=== PATIENT | male | born 1955 | race Caucasian/White ===

== ENCOUNTER 2017-09-11 17:47 | Inpatient (IN) | payer OTHER ==
[2017-09-11] MEDS ORDERED: ACETAMINOPHEN 325 MG TAB PO ×2 (19:30→20:00)
[2017-09-11] MEDS: SOD CHLORIDE 0.9% 1,000 ML IV (20:49)
[2017-09-11] MEDS: morphine 2 MG INJ IV (20:50)
[2017-09-11 20:52] LABS: ADD MAN DIFF? NO
[2017-09-11 20:53] LABS: WHITE BLOOD COUNT 6.2 10^3/ul (4.8-10.8)
[2017-09-11 20:53] LABS: ABNORMAL IP MESSAGE 1; BASOPHILS % 0.6 % (0.0-2.0); EOSINOPHILS % 0.6 % (0.0-7.0); HEMATOCRIT 33.1 % (42.0-52.0); HEMOGLOBIN 10.3 g/dl (14.0-18.0); LYMPHOCYTES # 0.6 10^3/ul (0.8-2.9); LYMPHOCYTES % 9.4 % (15.0-51.0); MEAN CORPUSCULAR HEMOGLOBIN 24.5 pg (29.0-33.0); MEAN CORPUSCULAR HGB CONC 31.1 g/dl (32.0-37.0); MEAN CORPUSCULAR VOLUME 78.8 fl (82.0-101.0); MONOCYTE # 0.4 10^3/ul (0.3-0.9); MONOCYTES % 6.8 % (0.0-11.0); NEUTROPHIL # 5.1 10^3/ul (1.6-7.5); NEUTROPHILS % 82.3 % (39.0-77.0); PLATELET COUNT 220 10^3/UL (140-415); POSITIVE DIFF @See below; RED CELL DISTRIBUTION WIDTH 15.1 % (11.5-14.5)
[2017-09-11 21:12] LABS: ALANINE AMINOTRANSFERASE 416 IU/L (13-69); ALBUMIN 3.6 g/dl (3.3-4.9); ALBUMIN/GLOBULIN RATIO 1.05; ALKALINE PHOSPHATASE 1191 IU/L (42-121); ANION GAP 13 (8-16); ASPARTATE AMINO TRANSFERASE 304 IU/L (15-46); BILIRUBIN,INDIRECT 0.7 mg/dl (0-1.1); BLOOD UREA NITROGEN 8 mg/dl (7-20); CALCIUM 9.6 mg/dl (8.4-10.2); CARBON DIOXIDE 27 mmol/L (21-31); CHLORIDE 100 mmol/L (97-110); CREATININE 0.71 mg/dl (0.61-1.24); GLUCOSE 133 mg/dl (70-220); POTASSIUM 3.5 mmol/L (3.5-5.1); SODIUM 136 mmol/L (135-144)
[2017-09-11] MEDS: HYDROmorphONE 0.5 MG/0.5 ML SYG IV (22:52)
[2017-09-12] MEDS: HYDROmorphONE 0.5 MG/0.5 ML SYG IV ×2 (03:18→16:16)
[2017-09-12] MEDS: SOD CHLORIDE 0.9% 1,000 ML IV ×3 (04:47→19:20)
[2017-09-12] MEDS: PANTOPRAZOLE 40 MG INJ IV (05:07)
[2017-09-12 05:13] LABS: ADD MAN DIFF? NO; HAAIG REFLEX REFLEX FILED
[2017-09-12 05:21] LABS: EOSINOPHILS # 0.1 10^3/ul (0.0-0.5); EOSINOPHILS % 2.8 % (0.0-7.0); HEMATOCRIT 27.9 % (42.0-52.0); HEMOGLOBIN 8.9 g/dl (14.0-18.0); LYMPHOCYTES % 25.9 % (15.0-51.0); MEAN CORPUSCULAR HEMOGLOBIN 24.9 pg (29.0-33.0); MEAN CORPUSCULAR HGB CONC 31.9 g/dl (32.0-37.0); MEAN CORPUSCULAR VOLUME 77.9 fl (82.0-101.0); MONOCYTE # 0.5 10^3/ul (0.3-0.9); MONOCYTES % 13.4 % (0.0-11.0); NEUTROPHIL # 2.3 10^3/ul (1.6-7.5); NEUTROPHILS % 56.6 % (39.0-77.0); PLATELET COUNT 204 10^3/UL (140-415); RED BLOOD COUNT 3.58 10^6/ul (4.70-6.10); RED CELL DISTRIBUTION WIDTH 15.3 % (11.5-14.5)
[2017-09-12 06:00] LABS: LIPASE 864 U/L (23-300)
[2017-09-12 06:10] LABS: MAGNESIUM 1.8 mg/dl (1.7-2.5)
[2017-09-12 06:10] LABS: PHOSPHORUS 3.5 mg/dl (2.5-4.9)
[2017-09-12 06:11] LABS: CHOLESTEROL 187 mg/dl (100-200)
[2017-09-12 06:11] LABS: CHOL/HDL RATIO 3.1 RATIO; HDL CHOLESTEROL 60 mg/dl (30-78); LDL CHOLESTEROL,CALCULATED 117 mg/dl; TRIGLYCERIDES 49 mg/dl (0-149)
[2017-09-12 06:14] LABS: ALANINE AMINOTRANSFERASE 350 IU/L (13-69); ALBUMIN 3.1 g/dl (3.3-4.9); ALBUMIN/GLOBULIN RATIO 1.14; ALKALINE PHOSPHATASE 1014 IU/L (42-121); ANION GAP 12 (8-16); ASPARTATE AMINO TRANSFERASE 263 IU/L (15-46); BILIRUBIN,INDIRECT 0.6 mg/dl (0-1.1); BILIRUBIN,TOTAL 2.1 mg/dl (0.2-1.3); BLOOD UREA NITROGEN 7 mg/dl (7-20); C-REACTIVE PROTEIN 0.6 mg/dl (0.0-0.9); CALCIUM 8.5 mg/dl (8.4-10.2); CARBON DIOXIDE 24 mmol/L (21-31); CHLORIDE 105 mmol/L (97-110); CREATININE 0.64 mg/dl (0.61-1.24); GLUCOSE 75 mg/dl (70-220); POTASSIUM 3.8 mmol/L (3.5-5.1); SODIUM 137 mmol/L (135-144); TOTAL PROTEIN 5.8 g/dl (6.1-8.1)
[2017-09-12 06:18] LABS: TOTAL IRON BINDING CAPACITY 387 ug/dl (241-421)
[2017-09-12 06:24] LABS: IRON < 10 ug/dl (35-150)
[2017-09-12 06:45] LABS: FERRITIN 10.2 ng/ml (11.1-264.0)
[2017-09-12 06:51] LABS: HEPATITIS B SURFACE ANTIGEN NEGATIVE (NEGATIVE)
[2017-09-12 06:53] LABS: HIV 1&2 ANTIBODY NEGATIVE (NEGATIVE)
[2017-09-12 06:59] LABS: HEPATITIS B SURFACE ANTIBODY NEGATIVE (NEGATIVE)
[2017-09-12 07:11] LABS: HEPATITIS B CORE ANTIBODY NEGATIVE (NEGATIVE); HEPATITIS C VIRAL ANTIBODY NEGATIVE (NEGATIVE)
[2017-09-12 08:10] LABS: CANCER ANTIGEN 125 31.4 U/ml (0.0-35.0); CARCINOEMBRYONIC ANTIGEN 1.9 ng/ml (0.0-5.0)
[2017-09-12 09:15] LABS: ADD UMIC NO; UR ASCORBIC ACID NEGATIVE (NEGATIVE); UR BILIRUBIN (Dip) 1+ mg/dL (NEGATIVE); UR BLOOD (Dip) NEGATIVE (NEGATIVE); UR CLARITY CLEAR (CLEAR); UR COLOR AMBER (YELLOW); UR GLUCOSE (Dip) NEGATIVE (NEGATIVE); UR KETONES (Dip) 1+ mg/dL (NEGATIVE); UR LEUKOCYTE ESTERASE (Dip) NEGATIVE Leu/ul (NEGATIVE); UR NITRITE (Dip) NEGATIVE (NEGATIVE); UR SPECIFIC GRAVITY (Dip) 1.015 (1.003-1.030); UR TOTAL PROTEIN (Dip) NEGATIVE (NEGATIVE); UR UROBILINOGEN (Dip) 1+ mg/dL (NEGATIVE)
[2017-09-12 12:15] LABS: INR 0.83; PROTIME 11.5 Sec (11.9-14.9); PT RATIO 0.9
[2017-09-12] MEDS: PEG/ELECTROLYTES 4L BTL PO (18:30)
[2017-09-12] MEDS ORDERED: HYDROmorphONE 2 MG/ML SYG IV (19:00)
[2017-09-12 19:43] LABS: INR 0.87; PARTIAL THROMBOPLASTIN TIME 28.6 Sec (25.0-35.0); PROTIME 11.9 Sec (11.9-14.9); PT RATIO 0.9
[2017-09-12] MEDS: HYDROmorphONE 2 MG/ML SYG IV (21:17)
[2017-09-12] MEDS: SOD FERRIC GLUC COMPLX 125 MG in SOD CHLORIDE 0.9% 100 ML IVPB (21:21)
[2017-09-12] MEDS: ONDANSETRON 4 MG INJ IV (21:26)
[2017-09-13] MEDS: SOD CHLORIDE 0.9% 1,000 ML IV ×3 (04:47→20:47)
[2017-09-13 05:12] LABS: ADD MAN DIFF? NO
[2017-09-13 05:18] LABS: WHITE BLOOD COUNT 4.6 10^3/ul (4.8-10.8)
[2017-09-13 05:18] LABS: BASOPHILS % 0.9 % (0.0-2.0); EOSINOPHILS # 0.1 10^3/ul (0.0-0.5); EOSINOPHILS % 1.7 % (0.0-7.0); HEMATOCRIT 30.7 % (42.0-52.0); HEMOGLOBIN 9.7 g/dl (14.0-18.0); LYMPHOCYTES # 0.8 10^3/ul (0.8-2.9); LYMPHOCYTES % 16.9 % (15.0-51.0); MEAN CORPUSCULAR HEMOGLOBIN 24.9 pg (29.0-33.0); MEAN CORPUSCULAR HGB CONC 31.6 g/dl (32.0-37.0); MEAN CORPUSCULAR VOLUME 78.7 fl (82.0-101.0); MEAN PLATELET VOLUME 8.7 fl (7.4-10.4); MONOCYTE # 0.3 10^3/ul (0.3-0.9); MONOCYTES % 6.1 % (0.0-11.0); NEUTROPHIL # 3.4 10^3/ul (1.6-7.5); NEUTROPHILS % 74.2 % (39.0-77.0); PLATELET COUNT 211 10^3/UL (140-415); RED CELL DISTRIBUTION WIDTH 15.6 % (11.5-14.5)
[2017-09-13 05:35] LABS: LIPASE 1080 U/L (23-300)
[2017-09-13 05:48] LABS: ALANINE AMINOTRANSFERASE 390 IU/L (13-69); ALBUMIN 3.5 g/dl (3.3-4.9); ALBUMIN/GLOBULIN RATIO 1.09; ALKALINE PHOSPHATASE 1238 IU/L (42-121); ANION GAP 14 (8-16); ASPARTATE AMINO TRANSFERASE 306 IU/L (15-46); BILIRUBIN,INDIRECT 0.8 mg/dl (0-1.1); BILIRUBIN,TOTAL 3.6 mg/dl (0.2-1.3); BLOOD UREA NITROGEN 6 mg/dl (7-20); CALCIUM 9.3 mg/dl (8.4-10.2); CARBON DIOXIDE 26 mmol/L (21-31); CHLORIDE 103 mmol/L (97-110); CREATININE 0.65 mg/dl (0.61-1.24); GLUCOSE 66 mg/dl (70-220); POTASSIUM 4.2 mmol/L (3.5-5.1); SODIUM 139 mmol/L (135-144); TOTAL PROTEIN 6.7 g/dl (6.1-8.1)
[2017-09-13 05:52] LABS: MAGNESIUM 1.7 mg/dl (1.7-2.5)
[2017-09-13 05:52] LABS: PHOSPHORUS 3.1 mg/dl (2.5-4.9)
[2017-09-13] MEDS: PANTOPRAZOLE (EC) 40 MG TAB PO (06:00)
[2017-09-13] MEDS: ONDANSETRON 4 MG INJ IV ×3 (06:13→23:05)
[2017-09-13] MEDS: HYDROmorphONE 1 MG/ML SYG IV ×3 (06:13→20:55)
[2017-09-13] MEDS ORDERED: ROCURONIUM 50 MG INJ ×2 (07:00→16:56)
[2017-09-13] MEDS ORDERED: GLUCOSE GEL 15 GRAM TUBE BUCCAL (10:00)
[2017-09-13] MEDS ORDERED: GLUCAGON 1 MG INJ IM (10:00)
[2017-09-13] MEDS ORDERED: DEXTROSE 50% 50 ML SYRINGE IV (10:00)
[2017-09-13] MEDS ORDERED: GLUCOSE GEL 15 GRAM TUBE PO ×2 (10:00)
[2017-09-13] MEDS: DEXTROSE 50% 50 ML SYRINGE IV (10:01)
[2017-09-13] MEDS: MULTIVITAMINS 10 ML, THIAMINE 100 MG, FOLIC ACID 1 MG in SOD CHLORIDE 0.9% 1,000 ML IVPB (11:56)
[2017-09-13] MEDS: DEXTROSE 5%-0.45% NACL 1,000 ML IV ×2 (13:45→20:58)
[2017-09-13] MEDS ORDERED: IOHEXOL 300MG/ML 30 ML BTL (16:21)
[2017-09-13] MEDS ORDERED: PROPOFOL 20 ML (16:56)
[2017-09-13] MEDS ORDERED: MIDAZOLAM 1 MG/ML 2 ML INJ (16:56)
[2017-09-13] MEDS ORDERED: FENTAnyl 50 MCG/ML VIAL (16:56)
[2017-09-13] MEDS ORDERED: CEFAZOLIN 1 GM INJ (16:56)
[2017-09-13] MEDS ORDERED: ONDANSETRON 4 MG INJ (16:58)
[2017-09-13] MEDS ORDERED: DEXAMETHASONE 4 MG/ML 1 ML INJ (16:58)
[2017-09-13] MEDS ORDERED: METOCLOPRAMIDE 10 MG INJ (16:58)
[2017-09-13] MEDS ORDERED: LABETALOL HCL 20MG INJ IV (17:30)
[2017-09-13] MEDS ORDERED: MEPERIDINE 25 MG INJ IV (17:30)
[2017-09-13] MEDS ORDERED: EPHEDrine SULFATE 50 MG/5 ML SYG IV (17:30)
[2017-09-13] MEDS ORDERED: DIPHENHYDRAMINE 50 MG INJ IV (17:30)
[2017-09-13] MEDS ORDERED: METOCLOPRAMIDE 10 MG INJ IV (17:30)
[2017-09-13] MEDS ORDERED: HYDROmorphONE (0.2 MG/ML) 10ML SYG IV ×3 (17:30)
[2017-09-13] MEDS ORDERED: ONDANSETRON 4 MG INJ IV (17:30)
[2017-09-13] MEDS ORDERED: FENTAnyl 50 MCG/ML VIAL IV ×3 (17:30)
[2017-09-13] MEDS ORDERED: PHENYLephrine (100 MCG/ML) 5ML SYG (18:18)
[2017-09-13] MEDS ORDERED: SUGAMMADEX SODIUM 200 MG/2 ML VIAL IV (18:39)
[2017-09-13] MEDS: SOD FERRIC GLUC COMPLX 125 MG in SOD CHLORIDE 0.9% 100 ML IVPB (20:55)
[2017-09-13 21:25] LABS: TROPONIN-I < 0.012 ng/ml (0.00-0.12)
[2017-09-14 01:54] LABS: TROPONIN-I < 0.012 ng/ml (0.00-0.12)
[2017-09-14] MEDS: ACCU-CHEK XX (02:00)
[2017-09-14] MEDS: ONDANSETRON 4 MG INJ IV (04:36)
[2017-09-14] MEDS: HYDROmorphONE 2 MG/ML SYG IV ×3 (04:36→21:04)
[2017-09-14] MEDS: SOD CHLORIDE 0.9% 1,000 ML IV ×2 (04:47→12:47)
[2017-09-14 05:27] LABS: ADD MAN DIFF? NO
[2017-09-14 05:35] LABS: ABNORMAL IP MESSAGE 1; BASOPHILS % 0.2 % (0.0-2.0); HEMATOCRIT 28.5 % (42.0-52.0); HEMOGLOBIN 9.1 g/dl (14.0-18.0); LYMPHOCYTES # 0.5 10^3/ul (0.8-2.9); LYMPHOCYTES % 7.9 % (15.0-51.0); MEAN CORPUSCULAR HEMOGLOBIN 24.4 pg (29.0-33.0); MEAN CORPUSCULAR HGB CONC 31.9 g/dl (32.0-37.0); MEAN CORPUSCULAR VOLUME 76.4 fl (82.0-101.0); MONOCYTE # 0.5 10^3/ul (0.3-0.9); MONOCYTES % 7.8 % (0.0-11.0); NEUTROPHIL # 4.9 10^3/ul (1.6-7.5); NEUTROPHILS % 83.8 % (39.0-77.0); PLATELET COUNT 213 10^3/UL (140-415); POSITIVE DIFF @See below; RED BLOOD COUNT 3.73 10^6/ul (4.70-6.10)
[2017-09-14 05:35] LABS: WHITE BLOOD COUNT 5.8 10^3/ul (4.8-10.8)
[2017-09-14] MEDS: DEXTROSE 5%-0.45% NACL 1,000 ML IV (05:40)
[2017-09-14] MEDS: PANTOPRAZOLE (EC) 40 MG TAB PO (05:40)
[2017-09-14 05:52] LABS: CHOLESTEROL 198 mg/dl (100-200)
[2017-09-14 05:52] LABS: CHOL/HDL RATIO 3.1 RATIO; HDL CHOLESTEROL 63 mg/dl (30-78); LDL CHOLESTEROL,CALCULATED 128 mg/dl; TRIGLYCERIDES 33 mg/dl (0-149)
[2017-09-14 05:58] LABS: ALANINE AMINOTRANSFERASE 353 IU/L (13-69); ALKALINE PHOSPHATASE 1021 IU/L (42-121); ANION GAP 11 (8-16); ASPARTATE AMINO TRANSFERASE 267 IU/L (15-46); BILIRUBIN,INDIRECT 0.7 mg/dl (0-1.1); BILIRUBIN,TOTAL 2.7 mg/dl (0.2-1.3); BLOOD UREA NITROGEN 4 mg/dl (7-20); CALCIUM 8.7 mg/dl (8.4-10.2); CARBON DIOXIDE 27 mmol/L (21-31); CHLORIDE 100 mmol/L (97-110); CREATININE 0.63 mg/dl (0.61-1.24); GLUCOSE 188 mg/dl (70-220); POTASSIUM 3.7 mmol/L (3.5-5.1); SODIUM 134 mmol/L (135-144)
[2017-09-14 06:06] LABS: TROPONIN-I < 0.012 ng/ml (0.00-0.12)
[2017-09-14 06:26] LABS: LIPASE 641 U/L (23-300)
[2017-09-14 06:28] LABS: MAGNESIUM 1.5 mg/dl (1.7-2.5)
[2017-09-14 06:28] LABS: PHOSPHORUS 3.4 mg/dl (2.5-4.9)
[2017-09-14] MEDS: CHLORPROMAZINE 25 MG INJ IM ×2 (10:26→14:09)
[2017-09-14] MEDS ORDERED: CHLORPROMAZINE 25 MG INJ IV (13:30)
[2017-09-14] MEDS: DEXTROSE 5%-0.9% NACL 1,000 ML IV (14:03)
[2017-09-14] MEDS: MAGNESIUM SULFATE 2 GM/50 ML 50 ML IVPB (16:37)
[2017-09-14] MEDS: BACLOFEN 10 MG TAB PO (19:02)
[2017-09-14] MEDS: SOD FERRIC GLUC COMPLX 125 MG in SOD CHLORIDE 0.9% 100 ML IVPB (20:59)
[2017-09-15] MEDS: ACCU-CHEK XX (02:00)
[2017-09-15] MEDS: DEXTROSE 5%-0.9% NACL 1,000 ML IV ×3 (02:31→13:54)
[2017-09-15] MEDS: PANTOPRAZOLE (EC) 40 MG TAB PO (05:18)
[2017-09-15 05:55] LABS: WHITE BLOOD COUNT 4.4 10^3/ul (4.8-10.8)
[2017-09-15 05:55] LABS: ADD MAN DIFF? NO; BASOPHILS % 0.9 % (0.0-2.0); EOSINOPHILS # 0.1 10^3/ul (0.0-0.5); EOSINOPHILS % 2.5 % (0.0-7.0); HEMOGLOBIN 8.8 g/dl (14.0-18.0); LYMPHOCYTES % 23.9 % (15.0-51.0); MEAN CORPUSCULAR HEMOGLOBIN 24.5 pg (29.0-33.0); MEAN CORPUSCULAR HGB CONC 31.4 g/dl (32.0-37.0); MONOCYTE # 0.4 10^3/ul (0.3-0.9); MONOCYTES % 8.9 % (0.0-11.0); NEUTROPHIL # 2.8 10^3/ul (1.6-7.5); NEUTROPHILS % 63.6 % (39.0-77.0); PLATELET COUNT 208 10^3/UL (140-415); RED BLOOD COUNT 3.59 10^6/ul (4.70-6.10); RED CELL DISTRIBUTION WIDTH 15.8 % (11.5-14.5)
[2017-09-15 06:29] LABS: PHOSPHORUS 2.5 mg/dl (2.5-4.9)
[2017-09-15 07:19] LABS: ALANINE AMINOTRANSFERASE 379 IU/L (13-69); ALBUMIN 2.9 g/dl (3.3-4.9); ALBUMIN/GLOBULIN RATIO 0.96; ALKALINE PHOSPHATASE 989 IU/L (42-121); ANION GAP 10 (8-16); ASPARTATE AMINO TRANSFERASE 350 IU/L (15-46); BILIRUBIN,INDIRECT 0.7 mg/dl (0-1.1); BILIRUBIN,TOTAL 2.2 mg/dl (0.2-1.3); BLOOD UREA NITROGEN 2 mg/dl (7-20); CALCIUM 8.5 mg/dl (8.4-10.2); CARBON DIOXIDE 29 mmol/L (21-31); CHLORIDE 107 mmol/L (97-110); CREATININE 0.69 mg/dl (0.61-1.24); GLUCOSE 111 mg/dl (70-220); POTASSIUM 3.4 mmol/L (3.5-5.1); SODIUM 143 mmol/L (135-144); TOTAL PROTEIN 5.9 g/dl (6.1-8.1)
[2017-09-15] MEDS ORDERED: MULTIVITAMINS 10 ML, THIAMINE 100 MG, FOLIC ACID 1 MG in SOD CHLORIDE 0.9% 1,000 ML IVPB (09:00)
[2017-09-15] MEDS: BACLOFEN 10 MG TAB PO ×2 (09:00→21:35)
[2017-09-15] MEDS: MULTIVITAMINS THERAPEUTIC TAB PO (09:00)
[2017-09-15] MEDS: FENTAnyl 50 MCG/ML VIAL ×3 (15:28→16:48)
[2017-09-15] MEDS ORDERED: MIDAZOLAM 1 MG/ML 2 ML INJ (15:29)
[2017-09-15] MEDS ORDERED: PROPOFOL 0 ML (15:29)
[2017-09-15] MEDS ORDERED: LIDOCAINE 1% (MDV) 20 ML INJ (15:32)
[2017-09-15] MEDS ORDERED: CEFAZOLIN 1 GM/50 ML (PMX) 100 ML IVPB (16:13)
[2017-09-15] MEDS ORDERED: FENTAnyl 50 MCG/ML VIAL ×3 (16:26→17:36)
[2017-09-15] MEDS ORDERED: NALOXONE (0.4 MG/ML) INJ (16:34)
[2017-09-15] MEDS ORDERED: FLUMAZENIL 0.5 MG INJ (16:34)
[2017-09-15] MEDS ORDERED: KETOROLAC 30 MG INJ IV (18:30)
[2017-09-15] MEDS ORDERED: ACETAMINOPHEN 1000MG/100ML IV 100 ML IVPB (18:30)
[2017-09-15] MEDS ORDERED: ONDANSETRON 4 MG INJ IV (18:30)
[2017-09-15] MEDS: POTASSIUM CHLORIDE 50 ML IVPB ×4 (19:35→22:44)
[2017-09-15] MEDS: ONDANSETRON 4 MG INJ IV (19:35)
[2017-09-15] MEDS: HYDROmorphONE 2 MG/ML SYG IV (19:36)
[2017-09-15] MEDS: SOD FERRIC GLUC COMPLX 125 MG in SOD CHLORIDE 0.9% 100 ML IVPB (23:51)
[2017-09-16] MEDS: ACCU-CHEK XX (02:54)
[2017-09-16 05:03] LABS: ADD MAN DIFF? NO
[2017-09-16] MEDS: DEXTROSE 5%-0.9% NACL 1,000 ML IV ×4 (05:04→23:58)
[2017-09-16] MEDS: PANTOPRAZOLE (EC) 40 MG TAB PO (05:07)
[2017-09-16 05:09] LABS: BASOPHILS % 0.8 % (0.0-2.0); EOSINOPHILS # 0.1 10^3/ul (0.0-0.5); EOSINOPHILS % 2.3 % (0.0-7.0); HEMATOCRIT 27.1 % (42.0-52.0); HEMOGLOBIN 8.5 g/dl (14.0-18.0); LYMPHOCYTES % 19.3 % (15.0-51.0); MEAN CORPUSCULAR HEMOGLOBIN 24.6 pg (29.0-33.0); MEAN CORPUSCULAR HGB CONC 31.4 g/dl (32.0-37.0); MEAN CORPUSCULAR VOLUME 78.6 fl (82.0-101.0); MEAN PLATELET VOLUME 8.8 fl (7.4-10.4); MONOCYTE # 0.6 10^3/ul (0.3-0.9); MONOCYTES % 10.7 % (0.0-11.0); NEUTROPHIL # 3.4 10^3/ul (1.6-7.5); NEUTROPHILS % 66.7 % (39.0-77.0); PLATELET COUNT 179 10^3/UL (140-415); RED BLOOD COUNT 3.45 10^6/ul (4.70-6.10); RED CELL DISTRIBUTION WIDTH 16.2 % (11.5-14.5)
[2017-09-16 05:09] LABS: WHITE BLOOD COUNT 5.1 10^3/ul (4.8-10.8)
[2017-09-16 05:40] LABS: ALANINE AMINOTRANSFERASE 355 IU/L (13-69); ALBUMIN 2.6 g/dl (3.3-4.9); ALBUMIN/GLOBULIN RATIO 1.08; ALKALINE PHOSPHATASE 879 IU/L (42-121); ANION GAP 10 (8-16); ASPARTATE AMINO TRANSFERASE 301 IU/L (15-46); BILIRUBIN,INDIRECT 0.8 mg/dl (0-1.1); BILIRUBIN,TOTAL 0.8 mg/dl (0.2-1.3); CALCIUM 8.6 mg/dl (8.4-10.2); CARBON DIOXIDE 27 mmol/L (21-31); CHLORIDE 102 mmol/L (97-110); CREATININE 0.58 mg/dl (0.61-1.24); GLUCOSE 93 mg/dl (70-220); POTASSIUM 3.5 mmol/L (3.5-5.1); SODIUM 135 mmol/L (135-144)
[2017-09-16 05:41] LABS: BLOOD UREA NITROGEN < 2 mg/dl (7-20)
[2017-09-16 05:44] LABS: PHOSPHORUS 2.7 mg/dl (2.5-4.9)
[2017-09-16 05:44] LABS: MAGNESIUM 1.6 mg/dl (1.7-2.5)
[2017-09-16] MEDS: MULTIVITAMINS THERAPEUTIC TAB PO (08:35)
[2017-09-16] MEDS: BACLOFEN 10 MG TAB PO ×2 (08:35→20:06)
[2017-09-16] MEDS: HYDROmorphONE 2 MG/ML SYG IV ×3 (09:36→20:08)
[2017-09-16] MEDS: SOD FERRIC GLUC COMPLX 125 MG in SOD CHLORIDE 0.9% 100 ML IVPB (20:06)
[2017-09-17] MEDS: ACCU-CHEK XX (01:24)
[2017-09-17] MEDS: HYDROmorphONE 2 MG/ML SYG IV ×5 (04:37→21:01)
[2017-09-17] MEDS: PANTOPRAZOLE (EC) 40 MG TAB PO (04:39)
[2017-09-17] MEDS: ONDANSETRON 4 MG INJ IV ×3 (04:39→21:00)
[2017-09-17] MEDS: DEXTROSE 5%-0.9% NACL 1,000 ML IV ×3 (06:42→21:54)
[2017-09-17] MEDS: BACLOFEN 10 MG TAB PO ×2 (09:03→21:00)
[2017-09-17] MEDS: MULTIVITAMINS THERAPEUTIC TAB PO (09:03)
[2017-09-17] MEDS: BARIUM SULFATE 135 ML (E-Z HD) PO (13:34)
[2017-09-18] MEDS: DEXTROSE 5%-0.9% NACL 1,000 ML IV ×3 (01:48→20:02)
[2017-09-18] MEDS: ACCU-CHEK XX (02:00)
[2017-09-18] MEDS: HYDROmorphONE 2 MG/ML SYG IV ×5 (03:03→23:49)
[2017-09-18] MEDS: ONDANSETRON 4 MG INJ IV ×5 (03:03→23:48)
[2017-09-18] MEDS: PANTOPRAZOLE (EC) 40 MG TAB PO (05:05)
[2017-09-18 05:09] LABS: ADD MAN DIFF? NO
[2017-09-18 05:22] LABS: BASOPHILS % 0.9 % (0.0-2.0); EOSINOPHILS # 0.2 10^3/ul (0.0-0.5); EOSINOPHILS % 3.4 % (0.0-7.0); HEMATOCRIT 26.2 % (42.0-52.0); HEMOGLOBIN 8.2 g/dl (14.0-18.0); LYMPHOCYTES # 0.6 10^3/ul (0.8-2.9); LYMPHOCYTES % 13.8 % (15.0-51.0); MEAN CORPUSCULAR HEMOGLOBIN 24.7 pg (29.0-33.0); MEAN CORPUSCULAR HGB CONC 31.3 g/dl (32.0-37.0); MEAN CORPUSCULAR VOLUME 78.9 fl (82.0-101.0); MEAN PLATELET VOLUME 9.3 fl (7.4-10.4); MONOCYTE # 0.5 10^3/ul (0.3-0.9); MONOCYTES % 10.2 % (0.0-11.0); NEUTROPHIL # 3.2 10^3/ul (1.6-7.5); NEUTROPHILS % 71.2 % (39.0-77.0); PLATELET COUNT 202 10^3/UL (140-415); RED BLOOD COUNT 3.32 10^6/ul (4.70-6.10); RED CELL DISTRIBUTION WIDTH 16.3 % (11.5-14.5)
[2017-09-18 05:22] LABS: WHITE BLOOD COUNT 4.4 10^3/ul (4.8-10.8)
[2017-09-18 05:46] LABS: ALANINE AMINOTRANSFERASE 232 IU/L (13-69); ALBUMIN 2.9 g/dl (3.3-4.9); ALBUMIN/GLOBULIN RATIO 1.07; ALKALINE PHOSPHATASE 656 IU/L (42-121); ANION GAP 10 (8-16); ASPARTATE AMINO TRANSFERASE 119 IU/L (15-46); BILIRUBIN,INDIRECT 0.3 mg/dl (0-1.1); BILIRUBIN,TOTAL 0.3 mg/dl (0.2-1.3); CALCIUM 8.4 mg/dl (8.4-10.2); CARBON DIOXIDE 29 mmol/L (21-31); CHLORIDE 101 mmol/L (97-110); CREATININE 0.56 mg/dl (0.61-1.24); GLUCOSE 118 mg/dl (70-220); POTASSIUM 3.1 mmol/L (3.5-5.1); SODIUM 137 mmol/L (135-144); TOTAL PROTEIN 5.6 g/dl (6.1-8.1)
[2017-09-18 05:50] LABS: BLOOD UREA NITROGEN < 2 mg/dl (7-20)
[2017-09-18] MEDS: POTASSIUM CHLORIDE (SR) 20 MEQ TAB PO (06:20)
[2017-09-18 06:36] LABS: MAGNESIUM 1.5 mg/dl (1.7-2.5)
[2017-09-18] MEDS: BACLOFEN 10 MG TAB PO ×2 (09:39→20:04)
[2017-09-18] MEDS: MULTIVITAMINS THERAPEUTIC TAB PO (09:39)
[2017-09-18] MEDS: METOCLOPRAMIDE 10 MG INJ IV ×2 (12:46→21:50)
[2017-09-18] MEDS: MAGNESIUM SULFATE 2 GM/50 ML 50 ML IVPB (17:55)
[2017-09-18] MEDS: DOCUSATE SODIUM 100 MG CAP PO (20:03)
[2017-09-18] MEDS ORDERED: ONDANSETRON 4 MG INJ IV (21:00)
[2017-09-19] MEDS: ACCU-CHEK XX (01:52)
[2017-09-19] MEDS: DEXTROSE 5%-0.9% NACL 1,000 ML IV ×3 (03:46→21:24)
[2017-09-19] MEDS: HYDROmorphONE 2 MG/ML SYG IV ×4 (03:46→21:16)
[2017-09-19] MEDS: ONDANSETRON 4 MG INJ IV ×4 (03:46→21:14)
[2017-09-19] MEDS: PANTOPRAZOLE (EC) 40 MG TAB PO (04:29)
[2017-09-19] MEDS: METOCLOPRAMIDE 10 MG INJ IV ×3 (05:18→22:00)
[2017-09-19] MEDS: MULTIVITAMINS THERAPEUTIC TAB PO (09:00)
[2017-09-19] MEDS: BACLOFEN 10 MG TAB PO ×2 (09:22→21:00)
[2017-09-19 13:08] LABS: ADD MAN DIFF? NO
[2017-09-19 13:10] LABS: WHITE BLOOD COUNT 5.3 10^3/ul (4.8-10.8)
[2017-09-19 13:10] LABS: BASOPHIL # 0.1 10^3/ul (0.0-0.1); BASOPHILS % 0.9 % (0.0-2.0); EOSINOPHILS # 0.2 10^3/ul (0.0-0.5); HEMATOCRIT 30.5 % (42.0-52.0); HEMOGLOBIN 9.4 g/dl (14.0-18.0); LYMPHOCYTES # 0.9 10^3/ul (0.8-2.9); LYMPHOCYTES % 16.4 % (15.0-51.0); MEAN CORPUSCULAR HEMOGLOBIN 24.9 pg (29.0-33.0); MEAN CORPUSCULAR HGB CONC 30.8 g/dl (32.0-37.0); MEAN CORPUSCULAR VOLUME 80.7 fl (82.0-101.0); MEAN PLATELET VOLUME 8.7 fl (7.4-10.4); MONOCYTE # 0.6 10^3/ul (0.3-0.9); MONOCYTES % 10.5 % (0.0-11.0); NEUTROPHIL # 3.7 10^3/ul (1.6-7.5); PLATELET COUNT 237 10^3/UL (140-415); RED BLOOD COUNT 3.78 10^6/ul (4.70-6.10); RED CELL DISTRIBUTION WIDTH 16.5 % (11.5-14.5)
[2017-09-19 13:32] LABS: ALANINE AMINOTRANSFERASE 203 IU/L (13-69); ALBUMIN 3.4 g/dl (3.3-4.9); ALBUMIN/GLOBULIN RATIO 1.13; ALKALINE PHOSPHATASE 676 IU/L (42-121); ANION GAP 11 (8-16); ASPARTATE AMINO TRANSFERASE 83 IU/L (15-46); BILIRUBIN,INDIRECT 0.3 mg/dl (0-1.1); BILIRUBIN,TOTAL 0.3 mg/dl (0.2-1.3); CALCIUM 8.7 mg/dl (8.4-10.2); CARBON DIOXIDE 29 mmol/L (21-31); CHLORIDE 102 mmol/L (97-110); CREATININE 0.64 mg/dl (0.61-1.24); GLUCOSE 115 mg/dl (70-220); POTASSIUM 3.4 mmol/L (3.5-5.1); SODIUM 139 mmol/L (135-144); TOTAL PROTEIN 6.4 g/dl (6.1-8.1)
[2017-09-19] MEDS ORDERED: VITAMIN A & D 5 GM OINT PACKET TOP (13:41)
[2017-09-19 13:46] LABS: BLOOD UREA NITROGEN < 2 mg/dl (7-20)
[2017-09-19] MEDS ORDERED: ROCURONIUM 50 MG INJ (17:18)
[2017-09-19] MEDS ORDERED: MIDAZOLAM 1 MG/ML 2 ML INJ (17:18)
[2017-09-19] MEDS ORDERED: PROPOFOL 20 ML (17:18)
[2017-09-19] MEDS ORDERED: LIDOCAINE 1% (MDV) 20 ML INJ (17:19)
[2017-09-19] MEDS ORDERED: FENTAnyl 50 MCG/ML VIAL (17:19)
[2017-09-19] MEDS ORDERED: CEFAZOLIN 1 GM INJ (17:31)
[2017-09-19] MEDS ORDERED: DEXAMETHASONE 4 MG/ML 1 ML INJ (17:46)
[2017-09-19] MEDS ORDERED: ONDANSETRON 4 MG INJ (17:46)
[2017-09-19] MEDS ORDERED: IOHEXOL 300MG/ML 30 ML BTL (19:00)
[2017-09-19] MEDS ORDERED: LABETALOL HCL 20MG INJ (19:03)
[2017-09-19] MEDS ORDERED: SUGAMMADEX SODIUM 200 MG/2 ML VIAL IV (20:04)
[2017-09-19] MEDS ORDERED: HYDROmorphONE (0.2 MG/ML) 10ML SYG IV ×2 (20:30)
[2017-09-20] MEDS: ONDANSETRON 4 MG INJ IV ×4 (01:21→20:40)
[2017-09-20] MEDS: HYDROmorphONE 2 MG/ML SYG IV ×4 (01:23→20:41)
[2017-09-20] MEDS: ACCU-CHEK XX (02:00)
[2017-09-20 05:07] LABS: ADD MAN DIFF? NO
[2017-09-20 05:09] LABS: WHITE BLOOD COUNT 5.1 10^3/ul (4.8-10.8)
[2017-09-20 05:09] LABS: BASOPHILS % 0.6 % (0.0-2.0); EOSINOPHILS % 0.4 % (0.0-7.0); HEMATOCRIT 26.6 % (42.0-52.0); HEMOGLOBIN 8.3 g/dl (14.0-18.0); LYMPHOCYTES # 0.6 10^3/ul (0.8-2.9); LYMPHOCYTES % 12.6 % (15.0-51.0); MEAN CORPUSCULAR HEMOGLOBIN 24.8 pg (29.0-33.0); MEAN CORPUSCULAR HGB CONC 31.2 g/dl (32.0-37.0); MEAN CORPUSCULAR VOLUME 79.4 fl (82.0-101.0); MEAN PLATELET VOLUME 8.7 fl (7.4-10.4); MONOCYTE # 0.6 10^3/ul (0.3-0.9); MONOCYTES % 11.2 % (0.0-11.0); NEUTROPHIL # 3.8 10^3/ul (1.6-7.5); PLATELET COUNT 204 10^3/UL (140-415); RED BLOOD COUNT 3.35 10^6/ul (4.70-6.10)
[2017-09-20] MEDS: PANTOPRAZOLE (EC) 40 MG TAB PO (05:09)
[2017-09-20] MEDS: DEXTROSE 5%-0.9% NACL 1,000 ML IV ×3 (05:09→23:18)
[2017-09-20] MEDS: METOCLOPRAMIDE 10 MG INJ IV (05:14)
[2017-09-20 05:32] LABS: ALANINE AMINOTRANSFERASE 156 IU/L (13-69); ALKALINE PHOSPHATASE 529 IU/L (42-121); ANION GAP 10 (8-16); ASPARTATE AMINO TRANSFERASE 57 IU/L (15-46); BILIRUBIN,INDIRECT 0.3 mg/dl (0-1.1); BILIRUBIN,TOTAL 0.3 mg/dl (0.2-1.3); BLOOD UREA NITROGEN 4 mg/dl (7-20); CARBON DIOXIDE 29 mmol/L (21-31); CHLORIDE 102 mmol/L (97-110); CREATININE 0.62 mg/dl (0.61-1.24); GLUCOSE 146 mg/dl (70-220); POTASSIUM 3.8 mmol/L (3.5-5.1); SODIUM 137 mmol/L (135-144)
[2017-09-20] MEDS: MULTIVITAMINS THERAPEUTIC TAB PO (08:57)
[2017-09-20] MEDS: BACLOFEN 10 MG TAB PO ×2 (08:57→20:40)
[2017-09-20] MEDS: CLONIDINE 0.1 MG/24 HR PATCH TRANSDERM (20:40)
[2017-09-20] MEDS: NEOMYC/POLYMYX/BACIT 30 GM OINT TOP (22:30)
[2017-09-21] MEDS: ONDANSETRON 4 MG INJ IV ×4 (01:04→21:34)
[2017-09-21] MEDS: HYDROmorphONE 2 MG/ML SYG IV ×4 (01:04→21:35)
[2017-09-21] MEDS: ACCU-CHEK XX ×2 (01:14→22:42)
[2017-09-21] MEDS: PANTOPRAZOLE (EC) 40 MG TAB PO (05:19)
[2017-09-21 05:37] LABS: ADD MAN DIFF? NO
[2017-09-21 05:39] LABS: BASOPHIL # 0.1 10^3/ul (0.0-0.1); EOSINOPHILS # 0.2 10^3/ul (0.0-0.5); HEMATOCRIT 29.3 % (42.0-52.0); LYMPHOCYTES % 21.1 % (15.0-51.0); MEAN CORPUSCULAR HEMOGLOBIN 24.8 pg (29.0-33.0); MEAN CORPUSCULAR HGB CONC 30.7 g/dl (32.0-37.0); MEAN CORPUSCULAR VOLUME 80.7 fl (82.0-101.0); MEAN PLATELET VOLUME 9.3 fl (7.4-10.4); MONOCYTE # 0.6 10^3/ul (0.3-0.9); MONOCYTES % 11.9 % (0.0-11.0); NEUTROPHILS % 61.8 % (39.0-77.0); PLATELET COUNT 252 10^3/UL (140-415); RED BLOOD COUNT 3.63 10^6/ul (4.70-6.10); RED CELL DISTRIBUTION WIDTH 16.9 % (11.5-14.5)
[2017-09-21 05:39] LABS: WHITE BLOOD COUNT 4.8 10^3/ul (4.8-10.8)
[2017-09-21 06:12] LABS: PROTIME 15.4 Sec (11.9-14.9); PT RATIO 1.2
[2017-09-21 06:13] LABS: PARTIAL THROMBOPLASTIN TIME 34.4 Sec (25.0-35.0)
[2017-09-21] MEDS: DEXTROSE 5%-0.9% NACL 1,000 ML IV ×3 (07:05→21:26)
[2017-09-21] MEDS: MULTIVITAMINS THERAPEUTIC TAB PO (08:28)
[2017-09-21] MEDS: BACLOFEN 10 MG TAB PO ×2 (08:28→21:23)
[2017-09-21] MEDS: NEOMYC/POLYMYX/BACIT 30 GM OINT TOP ×3 (09:00→21:24)
[2017-09-21] MEDS: DIPHENHYDRAMINE 50 MG INJ (11:30)
[2017-09-21] MEDS: ONDANSETRON 4 MG INJ (11:40)
[2017-09-21] MEDS: FENTAnyl 50 MCG/ML VIAL (11:45)
[2017-09-21] MEDS: LIDOCAINE 1%/EPI (1:100,000) (MDV) 20 ML INJ (11:45)
[2017-09-21] MEDS: HEPARIN 1000 UNITS/ML 10 ML INJ (11:55)
[2017-09-22] MEDS: PANTOPRAZOLE (EC) 40 MG TAB PO (05:01)
[2017-09-22] MEDS: AL HYDROX/MG HYDROX/SIMETH 30 ML CUP PO (05:01)
[2017-09-22 05:28] LABS: ADD MAN DIFF? NO
[2017-09-22 05:33] LABS: WHITE BLOOD COUNT 4.1 10^3/ul (4.8-10.8)
[2017-09-22 05:33] LABS: BASOPHIL # 0.1 10^3/ul (0.0-0.1); BASOPHILS % 1.5 % (0.0-2.0); EOSINOPHILS # 0.1 10^3/ul (0.0-0.5); EOSINOPHILS % 3.4 % (0.0-7.0); HEMATOCRIT 27.3 % (42.0-52.0); HEMOGLOBIN 8.6 g/dl (14.0-18.0); LYMPHOCYTES % 25.2 % (15.0-51.0); MEAN CORPUSCULAR HEMOGLOBIN 25.2 pg (29.0-33.0); MEAN CORPUSCULAR HGB CONC 31.5 g/dl (32.0-37.0); MEAN CORPUSCULAR VOLUME 80.1 fl (82.0-101.0); MEAN PLATELET VOLUME 9.4 fl (7.4-10.4); MONOCYTE # 0.6 10^3/ul (0.3-0.9); MONOCYTES % 14.8 % (0.0-11.0); NEUTROPHIL # 2.3 10^3/ul (1.6-7.5); NEUTROPHILS % 54.6 % (39.0-77.0); PLATELET COUNT 239 10^3/UL (140-415); RED BLOOD COUNT 3.41 10^6/ul (4.70-6.10); RED CELL DISTRIBUTION WIDTH 17.2 % (11.5-14.5)
[2017-09-22] MEDS: DEXTROSE 5%-0.9% NACL 1,000 ML IV ×5 (05:54→23:59)
[2017-09-22 05:56] LABS: ANION GAP 11 (8-16); BLOOD UREA NITROGEN 4 mg/dl (7-20); CALCIUM 8.6 mg/dl (8.4-10.2); CARBON DIOXIDE 28 mmol/L (21-31); CHLORIDE 104 mmol/L (97-110); CREATININE 0.68 mg/dl (0.61-1.24); GLUCOSE 98 mg/dl (70-220); POTASSIUM 3.2 mmol/L (3.5-5.1); SODIUM 140 mmol/L (135-144)
[2017-09-22] MEDS: BACLOFEN 10 MG TAB PO ×2 (08:53→20:57)
[2017-09-22] MEDS: MULTIVITAMINS THERAPEUTIC TAB PO (08:53)
[2017-09-22] MEDS ORDERED: POTASSIUM CHLORIDE 50 ML IVPB (12:00)
[2017-09-22] MEDS: NEOMYC/POLYMYX/BACIT 30 GM OINT TOP ×3 (12:02→20:57)
[2017-09-22] MEDS: POTASSIUM CHLORIDE 20 MEQ POWDER FOR ORAL SOLN PO (12:33)
[2017-09-22] MEDS: ENOXAPARIN 40 MG/0.4 ML SYG SC (12:45)
[2017-09-22] MEDS: ONDANSETRON 4 MG INJ IV (21:53)
[2017-09-22] MEDS: HYDROmorphONE 2 MG/ML SYG IV (21:53)
[2017-09-22] MEDS: ACCU-CHEK XX (22:10)
[2017-09-23] MEDS: DEXTROSE 5%-0.9% NACL 1,000 ML IV ×3 (04:40→18:47)
[2017-09-23 05:20] LABS: ADD MAN DIFF? NO
[2017-09-23 05:33] LABS: EOSINOPHILS # 0.1 10^3/ul (0.0-0.5); EOSINOPHILS % 2.8 % (0.0-7.0); HEMATOCRIT 26.7 % (42.0-52.0); HEMOGLOBIN 8.3 g/dl (14.0-18.0); LYMPHOCYTES # 1.1 10^3/ul (0.8-2.9); LYMPHOCYTES % 27.4 % (15.0-51.0); MEAN CORPUSCULAR HGB CONC 31.1 g/dl (32.0-37.0); MEAN CORPUSCULAR VOLUME 80.4 fl (82.0-101.0); MEAN PLATELET VOLUME 9.1 fl (7.4-10.4); MONOCYTE # 0.6 10^3/ul (0.3-0.9); MONOCYTES % 14.1 % (0.0-11.0); NEUTROPHIL # 2.1 10^3/ul (1.6-7.5); NEUTROPHILS % 54.4 % (39.0-77.0); PLATELET COUNT 235 10^3/UL (140-415); RED BLOOD COUNT 3.32 10^6/ul (4.70-6.10); RED CELL DISTRIBUTION WIDTH 17.1 % (11.5-14.5)
[2017-09-23 05:33] LABS: WHITE BLOOD COUNT 3.9 10^3/ul (4.8-10.8)
[2017-09-23] MEDS: PANTOPRAZOLE (EC) 40 MG TAB PO (05:42)
[2017-09-23 06:32] LABS: ANION GAP 9 (8-16); BLOOD UREA NITROGEN 3 mg/dl (7-20); CALCIUM 8.6 mg/dl (8.4-10.2); CARBON DIOXIDE 27 mmol/L (21-31); CHLORIDE 108 mmol/L (97-110); CREATININE 0.62 mg/dl (0.61-1.24); GLUCOSE 97 mg/dl (70-220); POTASSIUM 3.3 mmol/L (3.5-5.1); SODIUM 141 mmol/L (135-144)
[2017-09-23] MEDS: NEOMYC/POLYMYX/BACIT 30 GM OINT TOP ×3 (08:48→20:46)
[2017-09-23] MEDS: BACLOFEN 10 MG TAB PO ×2 (08:48→20:46)
[2017-09-23] MEDS: MULTIVITAMINS THERAPEUTIC TAB PO (08:48)
[2017-09-23] MEDS: ENOXAPARIN 40 MG/0.4 ML SYG SC (08:52)
[2017-09-23] MEDS: ONDANSETRON 4 MG INJ IV ×2 (08:57→16:06)
[2017-09-23] MEDS: HYDROmorphONE 2 MG/ML SYG IV ×3 (08:58→23:57)
[2017-09-23] MEDS: POTASSIUM CHLORIDE 50 ML IVPB ×3 (16:31→21:02)
[2017-09-23] MEDS: ACCU-CHEK XX (23:23)
[2017-09-23] MEDS: SOD CHLORIDE 0.9% IV (23:36)
[2017-09-23] MEDS: ONDANSETRON IV (23:36)
[2017-09-23] MEDS: DEXAMETHASONE IV (23:36)
[2017-09-24] MEDS: PACLITAXEL PROTEIN BOUND IV (00:14)
[2017-09-24] MEDS: SOD CHLORIDE 0.9% IV ×2 (00:14→01:55)
[2017-09-24] MEDS: HYDROmorphONE 2 MG/ML SYG IV ×2 (01:08→21:26)
[2017-09-24] MEDS: GEMCITABINE IV (01:55)
[2017-09-24 05:17] LABS: ADD MAN DIFF? NO
[2017-09-24 05:25] LABS: ABNORMAL IP MESSAGE 1; BASOPHILS % 0.6 % (0.0-2.0); EOSINOPHILS % 0.3 % (0.0-7.0); HEMOGLOBIN 9.4 g/dl (14.0-18.0); LYMPHOCYTES # 0.3 10^3/ul (0.8-2.9); LYMPHOCYTES % 10.2 % (15.0-51.0); MEAN CORPUSCULAR HGB CONC 31.3 g/dl (32.0-37.0); MEAN CORPUSCULAR VOLUME 79.8 fl (82.0-101.0); MEAN PLATELET VOLUME 9.5 fl (7.4-10.4); MONOCYTE # 0.1 10^3/ul (0.3-0.9); MONOCYTES % 1.9 % (0.0-11.0); NEUTROPHIL # 2.8 10^3/ul (1.6-7.5); NEUTROPHILS % 86.7 % (39.0-77.0); PLATELET COUNT 252 10^3/UL (140-415); POSITIVE DIFF @See below; RED BLOOD COUNT 3.76 10^6/ul (4.70-6.10); RED CELL DISTRIBUTION WIDTH 17.1 % (11.5-14.5)
[2017-09-24 05:25] LABS: WHITE BLOOD COUNT 3.2 10^3/ul (4.8-10.8)
[2017-09-24 05:54] LABS: ANION GAP 12 (8-16); BLOOD UREA NITROGEN 3 mg/dl (7-20); CARBON DIOXIDE 25 mmol/L (21-31); CHLORIDE 107 mmol/L (97-110); CREATININE 0.63 mg/dl (0.61-1.24); GLUCOSE 158 mg/dl (70-220); SODIUM 140 mmol/L (135-144)
[2017-09-24] MEDS: DEXTROSE 5%-0.9% NACL 1,000 ML IV ×3 (05:54→21:54)
[2017-09-24] MEDS: PANTOPRAZOLE (EC) 40 MG TAB PO (05:54)
[2017-09-24] MEDS: BACLOFEN 10 MG TAB PO ×2 (09:12→21:26)
[2017-09-24] MEDS: MULTIVITAMINS THERAPEUTIC TAB PO (09:12)
[2017-09-24] MEDS: ENOXAPARIN 40 MG/0.4 ML SYG SC (09:13)
[2017-09-24] MEDS: NEOMYC/POLYMYX/BACIT 30 GM OINT TOP ×3 (09:13→21:25)
[2017-09-24] MEDS: ONDANSETRON 4 MG INJ IV (21:28)
[2017-09-25] MEDS: ACCU-CHEK XX (01:46)
[2017-09-25] MEDS: PANTOPRAZOLE (EC) 40 MG TAB PO (05:09)
[2017-09-25 05:36] LABS: ADD MAN DIFF? NO
[2017-09-25 05:40] LABS: WHITE BLOOD COUNT 4.2 10^3/ul (4.8-10.8)
[2017-09-25 05:40] LABS: BASOPHILS % 0.7 % (0.0-2.0); HEMATOCRIT 27.4 % (42.0-52.0); HEMOGLOBIN 8.6 g/dl (14.0-18.0); LYMPHOCYTES % 24.3 % (15.0-51.0); MEAN CORPUSCULAR HEMOGLOBIN 24.9 pg (29.0-33.0); MEAN CORPUSCULAR HGB CONC 31.4 g/dl (32.0-37.0); MEAN CORPUSCULAR VOLUME 79.2 fl (82.0-101.0); MEAN PLATELET VOLUME 9.5 fl (7.4-10.4); MONOCYTE # 0.3 10^3/ul (0.3-0.9); MONOCYTES % 6.7 % (0.0-11.0); NEUTROPHIL # 2.8 10^3/ul (1.6-7.5); NEUTROPHILS % 67.1 % (39.0-77.0); PLATELET COUNT 220 10^3/UL (140-415); RED BLOOD COUNT 3.46 10^6/ul (4.70-6.10); RED CELL DISTRIBUTION WIDTH 17.1 % (11.5-14.5)
[2017-09-25 05:59] LABS: ANION GAP 11 (8-16); BLOOD UREA NITROGEN 6 mg/dl (7-20); CALCIUM 8.2 mg/dl (8.4-10.2); CARBON DIOXIDE 25 mmol/L (21-31); CHLORIDE 106 mmol/L (97-110); CREATININE 0.61 mg/dl (0.61-1.24); GLUCOSE 86 mg/dl (70-220); POTASSIUM 3.2 mmol/L (3.5-5.1); SODIUM 139 mmol/L (135-144)
[2017-09-25 06:04] LABS: ALANINE AMINOTRANSFERASE 73 IU/L (13-69); ALBUMIN 2.8 g/dl (3.3-4.9); ALKALINE PHOSPHATASE 325 IU/L (42-121); ANION GAP 8 (8-16); ASPARTATE AMINO TRANSFERASE 40 IU/L (15-46); BILIRUBIN,INDIRECT 0.5 mg/dl (0-1.1); BILIRUBIN,TOTAL 0.5 mg/dl (0.2-1.3); BLOOD UREA NITROGEN 6 mg/dl (7-20); CALCIUM 8.3 mg/dl (8.4-10.2); CARBON DIOXIDE 27 mmol/L (21-31); CHLORIDE 106 mmol/L (97-110); GLUCOSE 87 mg/dl (70-220); POTASSIUM 3.1 mmol/L (3.5-5.1); SODIUM 138 mmol/L (135-144); TOTAL PROTEIN 5.6 g/dl (6.1-8.1)
[2017-09-25] MEDS: MULTIVITAMINS THERAPEUTIC TAB PO (09:15)
[2017-09-25] MEDS: ENOXAPARIN 40 MG/0.4 ML SYG SC (09:16)
[2017-09-25] MEDS: POTASSIUM CHLORIDE (SR) 20 MEQ TAB PO (09:16)
[2017-09-25] MEDS: BACLOFEN 10 MG TAB PO ×2 (09:16→20:48)
[2017-09-25] MEDS: NEOMYC/POLYMYX/BACIT 30 GM OINT TOP (09:17)
[2017-09-25 10:13] LABS: PHOSPHORUS 3.6 mg/dl (2.5-4.9)
[2017-09-25 10:13] LABS: MAGNESIUM 1.9 mg/dl (1.7-2.5)
[2017-09-25] MEDS: HYDROmorphONE 2 MG/ML SYG IV ×2 (17:25→22:09)
[2017-09-25] MEDS: ONDANSETRON 4 MG INJ IV ×2 (17:28→22:09)
[2017-09-26] MEDS: ACCU-CHEK XX (01:50)
[2017-09-26] MEDS: ONDANSETRON 4 MG INJ IV ×4 (05:00→23:22)
[2017-09-26] MEDS: HYDROmorphONE 2 MG/ML SYG IV ×4 (05:00→23:20)
[2017-09-26] MEDS: PANTOPRAZOLE (EC) 40 MG TAB PO (05:01)
[2017-09-26 05:44] LABS: ADD MAN DIFF? NO
[2017-09-26 06:03] LABS: ABNORMAL IP MESSAGE 1; BASOPHILS % 0.4 % (0.0-2.0); EOSINOPHILS % 0.5 % (0.0-7.0); HEMATOCRIT 30.2 % (42.0-52.0); HEMOGLOBIN 9.6 g/dl (14.0-18.0); LYMPHOCYTES # 0.6 10^3/ul (0.8-2.9); LYMPHOCYTES % 6.8 % (15.0-51.0); MEAN CORPUSCULAR HEMOGLOBIN 25.3 pg (29.0-33.0); MEAN CORPUSCULAR HGB CONC 31.8 g/dl (32.0-37.0); MEAN CORPUSCULAR VOLUME 79.5 fl (82.0-101.0); MEAN PLATELET VOLUME 9.6 fl (7.4-10.4); MONOCYTE # 0.2 10^3/ul (0.3-0.9); MONOCYTES % 1.9 % (0.0-11.0); NEUTROPHIL # 7.6 10^3/ul (1.6-7.5); PLATELET COUNT 199 10^3/UL (140-415); POSITIVE DIFF @See below; RED CELL DISTRIBUTION WIDTH 16.9 % (11.5-14.5)
[2017-09-26 06:03] LABS: WHITE BLOOD COUNT 8.5 10^3/ul (4.8-10.8)
[2017-09-26 06:29] LABS: ANION GAP 12 (8-16); BLOOD UREA NITROGEN 11 mg/dl (7-20); CARBON DIOXIDE 27 mmol/L (21-31); CHLORIDE 99 mmol/L (97-110); CREATININE 0.59 mg/dl (0.61-1.24); GLUCOSE 87 mg/dl (70-220); POTASSIUM 3.8 mmol/L (3.5-5.1); SODIUM 134 mmol/L (135-144)
[2017-09-26 06:35] LABS: PHOSPHORUS 3.4 mg/dl (2.5-4.9)
[2017-09-26] MEDS: MULTIVITAMINS THERAPEUTIC TAB PO (09:41)
[2017-09-26] MEDS: BACLOFEN 10 MG TAB PO ×2 (09:41→21:36)
[2017-09-26] MEDS: ENOXAPARIN 40 MG/0.4 ML SYG SC (09:49)
[2017-09-27] MEDS: ACCU-CHEK XX (02:00)
[2017-09-27 05:08] LABS: ADD MAN DIFF? NO
[2017-09-27 05:11] LABS: WHITE BLOOD COUNT 5.2 10^3/ul (4.8-10.8)
[2017-09-27 05:11] LABS: BASOPHILS % 0.6 % (0.0-2.0); EOSINOPHILS # 0.1 10^3/ul (0.0-0.5); EOSINOPHILS % 1.9 % (0.0-7.0); HEMATOCRIT 27.9 % (42.0-52.0); HEMOGLOBIN 8.7 g/dl (14.0-18.0); LYMPHOCYTES # 0.8 10^3/ul (0.8-2.9); LYMPHOCYTES % 14.7 % (15.0-51.0); MEAN CORPUSCULAR HEMOGLOBIN 24.9 pg (29.0-33.0); MEAN CORPUSCULAR HGB CONC 31.2 g/dl (32.0-37.0); MEAN CORPUSCULAR VOLUME 79.7 fl (82.0-101.0); MEAN PLATELET VOLUME 9.5 fl (7.4-10.4); MONOCYTE # 0.1 10^3/ul (0.3-0.9); MONOCYTES % 1.5 % (0.0-11.0); NEUTROPHIL # 4.3 10^3/ul (1.6-7.5); NEUTROPHILS % 81.1 % (39.0-77.0); PLATELET COUNT 175 10^3/UL (140-415); RED CELL DISTRIBUTION WIDTH 16.8 % (11.5-14.5)
[2017-09-27] MEDS: PANTOPRAZOLE (EC) 40 MG TAB PO (05:50)
[2017-09-27] MEDS: HYDROmorphONE 2 MG/ML SYG IV ×4 (05:50→23:36)
[2017-09-27] MEDS: ONDANSETRON 4 MG INJ IV ×3 (05:50→20:36)
[2017-09-27] MEDS: MULTIVITAMINS THERAPEUTIC TAB PO (09:00)
[2017-09-27] MEDS: BACLOFEN 10 MG TAB PO ×2 (09:00→20:35)
[2017-09-27] MEDS: ENOXAPARIN 40 MG/0.4 ML SYG SC (09:00)
[2017-09-27] MEDS ORDERED: SOD CHLORIDE 0.9% 250 ML (12:53)
[2017-09-27] MEDS ORDERED: LIDOCAINE 1% (MDV) 20 ML INJ (12:53)
[2017-09-27] MEDS ORDERED: PROPOFOL 40 ML (12:56)
[2017-09-27] MEDS ORDERED: FENTAnyl 50 MCG/ML VIAL (12:56)
[2017-09-27] MEDS ORDERED: MIDAZOLAM 1 MG/ML 2 ML INJ (12:56)
[2017-09-27] MEDS ORDERED: LIDOCAINE 2% (SDV) 5 ML INJ (12:57)
[2017-09-27] MEDS ORDERED: FENTAnyl 50 MCG/ML VIAL IV (13:00)
[2017-09-27] MEDS ORDERED: HYDROmorphONE (0.2 MG/ML) 10ML SYG IV ×2 (13:00)
[2017-09-27] MEDS ORDERED: ONDANSETRON 4 MG INJ IV (13:00)
[2017-09-27] MEDS ORDERED: DIPHENHYDRAMINE 50 MG INJ IV (13:00)
[2017-09-27] MEDS ORDERED: PROPOFOL 20 ML (13:05)
[2017-09-27] MEDS: CEFAZOLIN 1 GM/50 ML (PMX) 50 ML IVPB (13:20)
[2017-09-27] MEDS ORDERED: EPHEDrine SULFATE 50 MG/5 ML SYG (13:50)
[2017-09-27] MEDS: HYDROmorphONE (0.2 MG/ML) 10ML SYG IV (15:55)
[2017-09-28] MEDS: ACCU-CHEK XX (02:00)
[2017-09-28] MEDS: ONDANSETRON 4 MG INJ IV ×4 (02:31→21:53)
[2017-09-28] MEDS: HYDROmorphONE 2 MG/ML SYG IV ×7 (02:32→21:50)
[2017-09-28 05:39] LABS: ADD MAN DIFF? NO
[2017-09-28 05:44] LABS: BASOPHILS % 0.5 % (0.0-2.0); EOSINOPHILS # 0.1 10^3/ul (0.0-0.5); EOSINOPHILS % 0.8 % (0.0-7.0); HEMATOCRIT 26.1 % (42.0-52.0); HEMOGLOBIN 8.3 g/dl (14.0-18.0); LYMPHOCYTES # 0.6 10^3/ul (0.8-2.9); LYMPHOCYTES % 7.2 % (15.0-51.0); MEAN CORPUSCULAR HEMOGLOBIN 25.2 pg (29.0-33.0); MEAN CORPUSCULAR HGB CONC 31.8 g/dl (32.0-37.0); MEAN CORPUSCULAR VOLUME 79.1 fl (82.0-101.0); MONOCYTE # 0.1 10^3/ul (0.3-0.9); MONOCYTES % 0.8 % (0.0-11.0); NEUTROPHIL # 7.6 10^3/ul (1.6-7.5); NEUTROPHILS % 90.2 % (39.0-77.0); PLATELET COUNT 185 10^3/UL (140-415); RED CELL DISTRIBUTION WIDTH 16.6 % (11.5-14.5)
[2017-09-28 05:44] LABS: WHITE BLOOD COUNT 8.4 10^3/ul (4.8-10.8)
[2017-09-28] MEDS: PANTOPRAZOLE (EC) 40 MG TAB PO (05:48)
[2017-09-28] MEDS: BACLOFEN 10 MG TAB PO ×2 (08:26→20:32)
[2017-09-28] MEDS: MULTIVITAMINS THERAPEUTIC TAB PO (08:26)
[2017-09-28] MEDS: ENOXAPARIN 40 MG/0.4 ML SYG SC (08:27)
[2017-09-28] MEDS: METOCLOPRAMIDE 10 MG INJ IV (12:20)
[2017-09-28] MEDS ORDERED: morphine LIQ (10 MG/5 ML) CUP PO (14:30)
[2017-09-28] MEDS: morphine (ER) 30 MG TAB PO ×2 (14:30→20:32)
[2017-09-28] MEDS: BISACODYL (EC) 5 MG TAB PO (15:57)
[2017-09-29] MEDS: ACCU-CHEK XX ×2 (01:00→23:26)
[2017-09-29] MEDS: HYDROmorphONE 2 MG/ML SYG IV ×5 (03:39→22:22)
[2017-09-29] MEDS: ONDANSETRON 4 MG INJ IV ×5 (03:39→22:20)
[2017-09-29] MEDS: PANTOPRAZOLE (EC) 40 MG TAB PO (05:36)
[2017-09-29 05:53] LABS: ADD MAN DIFF? NO
[2017-09-29 06:01] LABS: WHITE BLOOD COUNT 3.6 10^3/ul (4.8-10.8)
[2017-09-29 06:01] LABS: ABNORMAL IP MESSAGE 1; BASOPHILS % 0.8 % (0.0-2.0); EOSINOPHILS % 1.1 % (0.0-7.0); HEMATOCRIT 24.4 % (42.0-52.0); HEMOGLOBIN 7.7 g/dl (14.0-18.0); LYMPHOCYTES # 0.5 10^3/ul (0.8-2.9); LYMPHOCYTES % 13.6 % (15.0-51.0); MEAN CORPUSCULAR HEMOGLOBIN 25.2 pg (29.0-33.0); MEAN CORPUSCULAR HGB CONC 31.6 g/dl (32.0-37.0); MEAN CORPUSCULAR VOLUME 79.7 fl (82.0-101.0); MEAN PLATELET VOLUME 9.3 fl (7.4-10.4); MONOCYTE # 0.1 10^3/ul (0.3-0.9); MONOCYTES % 3.9 % (0.0-11.0); NEUTROPHIL # 2.9 10^3/ul (1.6-7.5); NEUTROPHILS % 80.3 % (39.0-77.0); PLATELET COUNT 175 10^3/UL (140-415); POSITIVE DIFF @See below; RED BLOOD COUNT 3.06 10^6/ul (4.70-6.10); RED CELL DISTRIBUTION WIDTH 16.3 % (11.5-14.5)
[2017-09-29] MEDS: morphine (ER) 30 MG TAB PO ×2 (08:07→21:29)
[2017-09-29] MEDS: BACLOFEN 10 MG TAB PO ×2 (08:07→21:28)
[2017-09-29] MEDS: MULTIVITAMINS THERAPEUTIC TAB PO (08:08)
[2017-09-29] MEDS: ENOXAPARIN 40 MG/0.4 ML SYG SC (08:18)
[2017-09-29] MEDS: POLYETHYLENE GLYCOL 17 GM PACKET PO (19:04)
[2017-09-29] MEDS: MAGNESIUM HYDROXIDE 30ML CUP PO ×2 (19:04→21:00)
[2017-09-30] MEDS: HYDROmorphONE 2 MG/ML SYG IV ×4 (04:50→20:29)
[2017-09-30] MEDS: ONDANSETRON 4 MG INJ IV ×4 (04:50→20:33)
[2017-09-30 04:56] LABS: WHITE BLOOD COUNT 1.9 10^3/ul (4.8-10.8)
[2017-09-30 04:56] LABS: ABNORMAL IP MESSAGE 1; HEMATOCRIT 25.3 % (42.0-52.0); HEMOGLOBIN 8.1 g/dl (14.0-18.0); MEAN CORPUSCULAR HEMOGLOBIN 25.2 pg (29.0-33.0); MEAN CORPUSCULAR VOLUME 78.6 fl (82.0-101.0); MEAN PLATELET VOLUME 8.4 fl (7.4-10.4); PLATELET COUNT 153 10^3/UL (140-415); POSITIVE DIFF @See below; RED BLOOD COUNT 3.22 10^6/ul (4.70-6.10); RED CELL DISTRIBUTION WIDTH 16.2 % (11.5-14.5)
[2017-09-30] MEDS: AL HYDROX/MG HYDROX/SIMETH 30 ML CUP PO (05:04)
[2017-09-30] MEDS: PANTOPRAZOLE (EC) 40 MG TAB PO (05:04)
[2017-09-30 05:09] LABS: ADD MAN DIFF? YES
[2017-09-30 05:19] LABS: ALANINE AMINOTRANSFERASE 56 IU/L (13-69); ALBUMIN 3.1 g/dl (3.3-4.9); ALKALINE PHOSPHATASE 347 IU/L (42-121); ANION GAP 10 (8-16); ASPARTATE AMINO TRANSFERASE 29 IU/L (15-46); BILIRUBIN,INDIRECT 0.2 mg/dl (0-1.1); BILIRUBIN,TOTAL 0.2 mg/dl (0.2-1.3); BLOOD UREA NITROGEN 9 mg/dl (7-20); CARBON DIOXIDE 32 mmol/L (21-31); CHLORIDE 97 mmol/L (97-110); GLUCOSE 99 mg/dl (70-220); POTASSIUM 4.3 mmol/L (3.5-5.1); SODIUM 135 mmol/L (135-144); TOTAL PROTEIN 6.2 g/dl (6.1-8.1)
[2017-09-30 05:20] LABS: PHOSPHORUS 3.4 mg/dl (2.5-4.9)
[2017-09-30 05:20] LABS: MAGNESIUM 2.1 mg/dl (1.7-2.5)
[2017-09-30] MEDS: BACLOFEN 10 MG TAB PO ×2 (08:36→20:24)
[2017-09-30] MEDS: POLYETHYLENE GLYCOL 17 GM PACKET PO ×2 (08:36→20:24)
[2017-09-30] MEDS: morphine (ER) 30 MG TAB PO ×2 (08:36→21:50)
[2017-09-30] MEDS: MAGNESIUM HYDROXIDE 30ML CUP PO ×2 (08:36→20:24)
[2017-09-30] MEDS: MULTIVITAMINS THERAPEUTIC TAB PO (08:36)
[2017-09-30] MEDS: ENOXAPARIN 40 MG/0.4 ML SYG SC (08:40)
[2017-09-30 10:21] LABS: ANISOCYTOSIS 1+ (0-0); BAND NEUTROPHILS % (M) 1 % (0-4); BASOPHILS % (M) 3 % (0-2); EOSINOPHILS % (M) 2 % (0-7); GIANT THROMBO% (M) 3 % (0-0); LYMPHOCYTES #M 0.5 10^3/ul (0.8-2.9); LYMPHOCYTES % (M) 30 % (15-51); MICROCYTOSIS 1+ (0-0); MONOCYTE #M 0.2 10^3/ul (0.3-0.9); MONOCYTES % (M) 12 % (0-11); OVALOCYTES 1+ (0-0); PLATELET ESTIMATE NORMAL; POIKILOCYTOSIS 1+ (0-0); SEGMENTED NEUTROPHILS (M) % 52 % (39-77); SMUDGE%M 1 % (0-0)
[2017-09-30 13:59] LABS: CANCER ANTIGEN 19-9 > 10000.0 U/ml (0.0-37.0)
[2017-10-01] MEDS: FILGRASTIM 480 MCG INJ SC ×2 (00:07→17:54)
[2017-10-01] MEDS: ACCU-CHEK XX (01:18)
[2017-10-01] MEDS: HYDROmorphONE 2 MG/ML SYG IV ×3 (03:44→20:31)
[2017-10-01] MEDS: ONDANSETRON 4 MG INJ IV ×3 (03:44→20:30)
[2017-10-01 05:37] LABS: ADD MAN DIFF? NO
[2017-10-01 05:42] LABS: WHITE BLOOD COUNT 5.9 10^3/ul (4.8-10.8)
[2017-10-01 05:42] LABS: BASOPHILS % 0.7 % (0.0-2.0); EOSINOPHILS # 0.1 10^3/ul (0.0-0.5); EOSINOPHILS % 2.2 % (0.0-7.0); HEMOGLOBIN 8.3 g/dl (14.0-18.0); LYMPHOCYTES # 0.6 10^3/ul (0.8-2.9); LYMPHOCYTES % 10.2 % (15.0-51.0); MEAN CORPUSCULAR HEMOGLOBIN 25.2 pg (29.0-33.0); MEAN CORPUSCULAR HGB CONC 31.9 g/dl (32.0-37.0); MEAN PLATELET VOLUME 9.3 fl (7.4-10.4); MONOCYTE # 0.6 10^3/ul (0.3-0.9); MONOCYTES % 10.1 % (0.0-11.0); NEUTROPHIL # 4.5 10^3/ul (1.6-7.5); NEUTROPHILS % 76.5 % (39.0-77.0); PLATELET COUNT 155 10^3/UL (140-415); RED BLOOD COUNT 3.29 10^6/ul (4.70-6.10); RED CELL DISTRIBUTION WIDTH 16.3 % (11.5-14.5)
[2017-10-01 05:55] LABS: MAGNESIUM 1.9 mg/dl (1.7-2.5)
[2017-10-01 05:55] LABS: PHOSPHORUS 3.2 mg/dl (2.5-4.9)
[2017-10-01 06:19] LABS: INR 1.23; PROTIME 15.7 Sec (11.9-14.9); PT RATIO 1.2
[2017-10-01] MEDS: PANTOPRAZOLE (EC) 40 MG TAB PO (06:49)
[2017-10-01] MEDS: POLYETHYLENE GLYCOL 17 GM PACKET PO ×2 (09:50→20:42)
[2017-10-01] MEDS: BISACODYL (EC) 5 MG TAB PO (09:50)
[2017-10-01] MEDS: BACLOFEN 10 MG TAB PO ×2 (09:50→20:26)
[2017-10-01] MEDS: DOCUSATE SODIUM 100 MG CAP PO ×2 (09:50→20:41)
[2017-10-01] MEDS: MAGNESIUM HYDROXIDE 30ML CUP PO ×2 (09:50→20:40)
[2017-10-01] MEDS: MULTIVITAMINS THERAPEUTIC TAB PO (09:50)
[2017-10-01] MEDS: ENOXAPARIN 40 MG/0.4 ML SYG SC (10:01)
[2017-10-01] MEDS: morphine (ER) 30 MG TAB PO ×2 (11:37→20:58)
[2017-10-01] MEDS ORDERED: MINERAL OIL 133 ML ENEMA PR (18:00)
[2017-10-01] MEDS ORDERED: PEG/ELECTROLYTES 4L BTL PO (18:00)
[2017-10-02] MEDS: ACCU-CHEK XX (02:00)
[2017-10-02] MEDS: PANTOPRAZOLE (EC) 40 MG TAB PO (06:05)
[2017-10-02] MEDS: HYDROmorphONE 2 MG/ML SYG IV ×3 (06:57→20:30)
[2017-10-02] MEDS: BACLOFEN 10 MG TAB PO ×2 (08:10→20:31)
[2017-10-02] MEDS: MULTIVITAMINS THERAPEUTIC TAB PO (08:11)
[2017-10-02] MEDS: morphine (ER) 30 MG TAB PO ×2 (08:11→20:42)
[2017-10-02] MEDS: POLYETHYLENE GLYCOL 17 GM PACKET PO ×2 (08:13→20:32)
[2017-10-02] MEDS: MAGNESIUM HYDROXIDE 30ML CUP PO ×2 (08:13→20:32)
[2017-10-02] MEDS: ENOXAPARIN 40 MG/0.4 ML SYG SC (08:30)
[2017-10-02] MEDS: FILGRASTIM 480 MCG INJ SC (17:44)
[2017-10-02] MEDS: ONDANSETRON 4 MG INJ IV (20:30)
[2017-10-02] MEDS: DOCUSATE SODIUM 100 MG CAP PO (20:31)
[2017-10-02] MEDS: SENNA TAB PO (20:31)
[2017-10-03] MEDS: ACCU-CHEK XX (02:25)
[2017-10-03] MEDS: PANTOPRAZOLE (EC) 40 MG TAB PO (06:29)
[2017-10-03] MEDS: HYDROmorphONE 2 MG/ML SYG IV (06:30)
[2017-10-03] MEDS: ONDANSETRON 4 MG INJ IV (06:30)
[2017-10-03] MEDS: MAGNESIUM HYDROXIDE 30ML CUP PO ×2 (09:00→20:52)
[2017-10-03] MEDS: POLYETHYLENE GLYCOL 17 GM PACKET PO ×2 (09:00→20:52)
[2017-10-03] MEDS: BACLOFEN 10 MG TAB PO ×2 (09:43→20:51)
[2017-10-03] MEDS: SENNA TAB PO ×2 (09:43→20:50)
[2017-10-03] MEDS: morphine (ER) 30 MG TAB PO ×2 (09:43→20:51)
[2017-10-03] MEDS: MULTIVITAMINS THERAPEUTIC TAB PO (09:43)
[2017-10-03] MEDS: DOCUSATE SODIUM 100 MG CAP PO ×2 (09:43→20:50)
[2017-10-03] MEDS: ENOXAPARIN 40 MG/0.4 ML SYG SC (10:19)
[2017-10-03 13:21] LABS: ABNORMAL IP MESSAGE 1; HEMOGLOBIN 9.2 g/dl (14.0-18.0); MEAN CORPUSCULAR HEMOGLOBIN 25.1 pg (29.0-33.0); MEAN CORPUSCULAR HGB CONC 31.7 g/dl (32.0-37.0); MEAN PLATELET VOLUME 8.7 fl (7.4-10.4); PLATELET COUNT 194 10^3/UL (140-415); POSITIVE DIFF @See below; RED BLOOD COUNT 3.67 10^6/ul (4.70-6.10); RED CELL DISTRIBUTION WIDTH 17.2 % (11.5-14.5)
[2017-10-03 13:21] LABS: WHITE BLOOD COUNT 26.1 10^3/ul (4.8-10.8)
[2017-10-03 13:25] LABS: ADD MAN DIFF? YES
[2017-10-03 13:46] LABS: ANION GAP 11 (8-16); BLOOD UREA NITROGEN 7 mg/dl (7-20); CALCIUM 9.3 mg/dl (8.4-10.2); CARBON DIOXIDE 29 mmol/L (21-31); CHLORIDE 97 mmol/L (97-110); CREATININE 0.64 mg/dl (0.61-1.24); GLUCOSE 79 mg/dl (70-220); SODIUM 133 mmol/L (135-144)
[2017-10-03 13:52] LABS: ANISOCYTOSIS 3+ (0-0); BAND NEUTROPHILS % (M) 31 % (0-4); LYMPHOCYTES #M 2.3 10^3/ul (0.8-2.9); LYMPHOCYTES % (M) 9 % (15-51); MICROCYTOSIS 3+ (0-0); MONOCYTE #M 0.2 10^3/ul (0.3-0.9); MONOCYTES % (M) 1 % (0-11); PLATELET ESTIMATE NORMAL; POIKILOCYTOSIS 1+ (0-0); POLYCHROMASIA 1+ (0-0); SEG NEUT #M 17.5 10^3/ul (1.6-7.5); SEGMENTED NEUTROPHILS (M) % 59 % (39-77)
[2017-10-04] MEDS: HYDROmorphONE 2 MG/ML SYG IV ×4 (00:09→20:21)
[2017-10-04] MEDS: ONDANSETRON 4 MG INJ IV ×2 (00:11→16:28)
[2017-10-04] MEDS: ACCU-CHEK XX (01:47)
[2017-10-04] MEDS: PANTOPRAZOLE (EC) 40 MG TAB PO (05:35)
[2017-10-04 06:01] LABS: WHITE BLOOD COUNT 19.4 10^3/ul (4.8-10.8)
[2017-10-04 06:01] LABS: HEMOGLOBIN 9.2 g/dl (14.0-18.0); MEAN CORPUSCULAR HEMOGLOBIN 25.3 pg (29.0-33.0); MEAN CORPUSCULAR HGB CONC 31.7 g/dl (32.0-37.0); MEAN CORPUSCULAR VOLUME 79.7 fl (82.0-101.0); MEAN PLATELET VOLUME 9.1 fl (7.4-10.4); PLATELET COUNT 213 10^3/UL (140-415); POSITIVE DIFF @See below; RED BLOOD COUNT 3.64 10^6/ul (4.70-6.10); RED CELL DISTRIBUTION WIDTH 17.3 % (11.5-14.5)
[2017-10-04 06:03] LABS: ADD MAN DIFF? YES
[2017-10-04 06:51] LABS: ANION GAP 14 (8-16); BLOOD UREA NITROGEN 5 mg/dl (7-20); CARBON DIOXIDE 29 mmol/L (21-31); CHLORIDE 98 mmol/L (97-110); CREATININE 0.62 mg/dl (0.61-1.24); GLUCOSE 85 mg/dl (70-220); POTASSIUM 4.1 mmol/L (3.5-5.1); SODIUM 137 mmol/L (135-144)
[2017-10-04 07:42] LABS: ANISOCYTOSIS 3+ (0-0); BAND NEUTROPHILS #M 4.2 10^3/ul (0.0-0.6); BAND NEUTROPHILS % (M) 22 % (0-4); BASOPHIL #M 0.1 10^3/ul (0.0-0.0); BASOPHILS % (M) 1 % (0-2); GIANT THROMBO% (M) 2 % (0-0); HYPOCHROMASIA 1+ (0-0); LYMPHOCYTES #M 3.4 10^3/ul (0.8-2.9); LYMPHOCYTES % (M) 18 % (15-51); MICROCYTOSIS 3+ (0-0); MONOCYTE #M 0.1 10^3/ul (0.3-0.9); MONOCYTES % (M) 1 % (0-11); PLATELET ESTIMATE NORMAL; POIKILOCYTOSIS 1+ (0-0); POLYCHROMASIA 3+ (0-0); PROMYELOCYTES #M 0.5 10^3/ul (0-0); PROMYELOCYTES % (M) 3 % (0-0); SEG NEUT #M 11.5 10^3/ul (1.6-7.5); SEGMENTED NEUTROPHILS (M) % 55 % (39-77); SMUDGE%M 1 % (0-0)
[2017-10-04] MEDS: ENOXAPARIN 40 MG/0.4 ML SYG SC (09:00)
[2017-10-04] MEDS: POLYETHYLENE GLYCOL 17 GM PACKET PO ×2 (09:00→20:12)
[2017-10-04] MEDS: MAGNESIUM HYDROXIDE 30ML CUP PO ×2 (09:00→20:12)
[2017-10-04] MEDS: DOCUSATE SODIUM 100 MG CAP PO ×2 (09:29→20:11)
[2017-10-04] MEDS: SENNA TAB PO ×2 (09:29→20:11)
[2017-10-04] MEDS: MULTIVITAMINS THERAPEUTIC TAB PO (09:29)
[2017-10-04] MEDS: BACLOFEN 10 MG TAB PO ×2 (09:29→20:11)
[2017-10-04] MEDS: morphine (ER) 30 MG TAB PO ×2 (09:32→20:12)
[2017-10-04] MEDS ORDERED: IOHEXOL 300MG/ML 150 ML BTL (12:32)
[2017-10-04] MEDS ORDERED: LIDOCAINE 1% (MDV) 20 ML INJ (12:32)
[2017-10-04] MEDS ORDERED: CEFAZOLIN 1 GM/50 ML (PMX) 50 ML IVPB (12:49)
[2017-10-04] MEDS ORDERED: FENTAnyl 50 MCG/ML VIAL ×2 (13:50)
[2017-10-04] MEDS ORDERED: MIDAZOLAM 1 MG/ML 2 ML INJ (13:51)
[2017-10-04] MEDS ORDERED: PROPOFOL 20 ML (13:51)
[2017-10-04] MEDS ORDERED: HYDROmorphONE (0.2 MG/ML) 10ML SYG IV ×3 (15:14→15:30)
[2017-10-04] MEDS ORDERED: hydrALAzine 20 MG INJ IV (15:30)
[2017-10-04] MEDS ORDERED: ONDANSETRON 4 MG INJ IV (15:30)
[2017-10-04] MEDS: HYDROmorphONE (0.2 MG/ML) 10ML SYG IV ×3 (15:30→15:51)
[2017-10-05] MEDS: HYDROmorphONE 2 MG/ML SYG IV ×6 (00:08→22:34)
[2017-10-05] MEDS: ACCU-CHEK XX (02:00)
[2017-10-05] MEDS: ONDANSETRON 4 MG INJ IV ×4 (04:08→19:31)
[2017-10-05] MEDS: PANTOPRAZOLE (EC) 40 MG TAB PO (05:11)
[2017-10-05] MEDS: HYDROCODONE/APAP (10/325) TAB PO (05:11)
[2017-10-05] MEDS: POLYETHYLENE GLYCOL 17 GM PACKET PO ×2 (09:00→20:57)
[2017-10-05] MEDS: MAGNESIUM HYDROXIDE 30ML CUP PO ×2 (09:00→20:57)
[2017-10-05] MEDS: DOCUSATE SODIUM 100 MG CAP PO ×2 (09:44→20:27)
[2017-10-05] MEDS: SENNA TAB PO ×2 (09:45→20:57)
[2017-10-05] MEDS: MULTIVITAMINS THERAPEUTIC TAB PO (09:45)
[2017-10-05] MEDS: BACLOFEN 10 MG TAB PO ×2 (09:45→20:27)
[2017-10-05] MEDS: morphine (ER) 30 MG TAB PO ×2 (09:45→20:27)
[2017-10-05] MEDS: ENOXAPARIN 40 MG/0.4 ML SYG SC (10:00)
[2017-10-05 12:08] LABS: ABNORMAL IP MESSAGE 1; HEMATOCRIT 31.3 % (42.0-52.0); MEAN CORPUSCULAR HEMOGLOBIN 25.3 pg (29.0-33.0); MEAN CORPUSCULAR HGB CONC 31.9 g/dl (32.0-37.0); MEAN PLATELET VOLUME 8.7 fl (7.4-10.4); PLATELET COUNT 214 10^3/UL (140-415); POSITIVE DIFF @See below; RED BLOOD COUNT 3.96 10^6/ul (4.70-6.10); RED CELL DISTRIBUTION WIDTH 17.4 % (11.5-14.5)
[2017-10-05 12:08] LABS: WHITE BLOOD COUNT 13.8 10^3/ul (4.8-10.8)
[2017-10-05 12:15] LABS: ANION GAP 15 (8-16); BLOOD UREA NITROGEN 5 mg/dl (7-20); CALCIUM 8.8 mg/dl (8.4-10.2); CARBON DIOXIDE 25 mmol/L (21-31); CHLORIDE 98 mmol/L (97-110); CREATININE 0.56 mg/dl (0.61-1.24); GLUCOSE 78 mg/dl (70-220); POTASSIUM 3.9 mmol/L (3.5-5.1); SODIUM 134 mmol/L (135-144)
[2017-10-05 12:16] LABS: ADD MAN DIFF? YES
[2017-10-05 12:38] LABS: ANISOCYTOSIS 2+ (0-0); BAND NEUTROPHILS % (M) 15 % (0-4); BURR CELLS 1+ (0-0); EOSINOPHILS % (M) 1 % (0-7); LYMPHOCYTES #M 1.3 10^3/ul (0.8-2.9); LYMPHOCYTES % (M) 10 % (15-51); METAMYELOCYTES #M 0.1 10^3/ul (0.0-0.0); METAMYELOCYTES %M 1 % (0-0); MICROCYTOSIS 2+ (0-0); MONOCYTE #M 1.3 10^3/ul (0.3-0.9); MONOCYTES % (M) 10 % (0-11); MYELOCYTES #M 0.8 10^3/ul (0.0-0.0); MYELOCYTES % (M) 6 % (0-0); PLATELET ESTIMATE NORMAL; POIKILOCYTOSIS 1+ (0-0); POLYCHROMASIA 3+ (0-0); PROMYELOCYTES #M 0.2 10^3/ul (0-0); PROMYELOCYTES % (M) 2 % (0-0); SEG NEUT #M 7.9 10^3/ul (1.6-7.5); SEGMENTED NEUTROPHILS (M) % 55 % (39-77); SMUDGE%M 9 % (0-0)
[2017-10-05] MEDS: NACL 0.9% 3 ML SYG IV ×2 (20:27→22:31)
[2017-10-05] MEDS: DEXAMETHASONE IVPB (23:50)
[2017-10-05] MEDS: DIPHENHYDRAMINE 50 MG INJ IV (23:50)
[2017-10-05] MEDS: DEXTROSE 5% IVPB (23:50)
[2017-10-05] MEDS: ONDANSETRON IVPB (23:50)
[2017-10-06] MEDS ORDERED: SOD CHLORIDE 0.9% IV
[2017-10-06] MEDS ORDERED: PACLITAXEL PROTEIN BOUND IV
[2017-10-06] MEDS: SOD CHLORIDE 0.9% IV ×2 (00:29→01:54)
[2017-10-06] MEDS: PACLITAXEL PROTEIN BOUND IV (00:29)
[2017-10-06] MEDS: GEMCITABINE IV (01:54)
[2017-10-06] MEDS: ACCU-CHEK XX (02:00)
[2017-10-06 06:08] LABS: ADD MAN DIFF? NO
[2017-10-06 06:12] LABS: ABNORMAL IP MESSAGE 1; BASOPHILS % 0.3 % (0.0-2.0); EOSINOPHILS % 0.4 % (0.0-7.0); HEMATOCRIT 32.5 % (42.0-52.0); HEMOGLOBIN 10.5 g/dl (14.0-18.0); LYMPHOCYTES # 0.5 10^3/ul (0.8-2.9); LYMPHOCYTES % 4.2 % (15.0-51.0); MEAN CORPUSCULAR HEMOGLOBIN 25.4 pg (29.0-33.0); MEAN CORPUSCULAR HGB CONC 32.3 g/dl (32.0-37.0); MEAN CORPUSCULAR VOLUME 78.7 fl (82.0-101.0); MEAN PLATELET VOLUME 9.1 fl (7.4-10.4); MONOCYTE # 0.7 10^3/ul (0.3-0.9); MONOCYTES % 6.1 % (0.0-11.0); NEUTROPHIL # 7.2 10^3/ul (1.6-7.5); NEUTROPHILS % 65.3 % (39.0-77.0); PLATELET COUNT 238 10^3/UL (140-415); POSITIVE DIFF @See below; RED BLOOD COUNT 4.13 10^6/ul (4.70-6.10); RED CELL DISTRIBUTION WIDTH 17.2 % (11.5-14.5)
[2017-10-06 06:12] LABS: WHITE BLOOD COUNT 11.1 10^3/ul (4.8-10.8)
[2017-10-06 06:36] LABS: INR 1.34; PROTIME 16.8 Sec (11.9-14.9); PT RATIO 1.3
[2017-10-06 06:37] LABS: PARTIAL THROMBOPLASTIN TIME 43.3 Sec (25.0-35.0)
[2017-10-06 06:43] LABS: ALANINE AMINOTRANSFERASE 43 IU/L (13-69); ALBUMIN 3.3 g/dl (3.3-4.9); ALKALINE PHOSPHATASE 373 IU/L (42-121); ANION GAP 14 (8-16); ASPARTATE AMINO TRANSFERASE 41 IU/L (15-46); BILIRUBIN,INDIRECT 0.3 mg/dl (0-1.1); BILIRUBIN,TOTAL 0.3 mg/dl (0.2-1.3); BLOOD UREA NITROGEN 8 mg/dl (7-20); CALCIUM 8.8 mg/dl (8.4-10.2); CARBON DIOXIDE 28 mmol/L (21-31); CHLORIDE 99 mmol/L (97-110); CREATININE 0.62 mg/dl (0.61-1.24); GLUCOSE 118 mg/dl (70-220); MAGNESIUM 1.8 mg/dl (1.7-2.5); PHOSPHORUS 3.4 mg/dl (2.5-4.9); POTASSIUM 4.5 mmol/L (3.5-5.1); SODIUM 136 mmol/L (135-144); TOTAL PROTEIN 6.6 g/dl (6.1-8.1)
[2017-10-06] MEDS: PANTOPRAZOLE (EC) 40 MG TAB PO (06:51)
[2017-10-06] MEDS: HYDROmorphONE 2 MG/ML SYG IV (06:52)
[2017-10-06] MEDS: ONDANSETRON 4 MG INJ IV (06:52)
[2017-10-06] MEDS: MAGNESIUM HYDROXIDE 30ML CUP PO (09:00)
[2017-10-06] MEDS: POLYETHYLENE GLYCOL 17 GM PACKET PO (09:00)
[2017-10-06] MEDS: SENNA TAB PO (09:03)
[2017-10-06] MEDS: MULTIVITAMINS THERAPEUTIC TAB PO (09:04)
[2017-10-06] MEDS: BACLOFEN 10 MG TAB PO (09:04)
[2017-10-06] MEDS: morphine (ER) 30 MG TAB PO (09:04)
[2017-10-06] MEDS: DOCUSATE SODIUM 100 MG CAP PO (09:04)
[2017-10-06] MEDS: ENOXAPARIN 40 MG/0.4 ML SYG SC (09:10)
[2017-10-06 10:01] LABS: ANISOCYTOSIS 2+ (0-0); BAND NEUTROPHILS #M 0.6 10^3/ul (0.0-0.6); BAND NEUTROPHILS % (M) 6 % (0-4); EOSINOPHILS % (M) 1 % (0-7); LYMPHOCYTES #M 0.3 10^3/ul (0.8-2.9); LYMPHOCYTES % (M) 3 % (15-51); MICROCYTOSIS 2+ (0-0); MONOCYTE #M 0.1 10^3/ul (0.3-0.9); MONOCYTES % (M) 1 % (0-11); MYELOCYTES #M 0.9 10^3/ul (0.0-0.0); MYELOCYTES % (M) 9 % (0-0); PLATELET ESTIMATE NORMAL; PROMYELOCYTES #M 0.4 10^3/ul (0-0); PROMYELOCYTES % (M) 4 % (0-0); REACTIVE LYMPHOCYTES #M 0.1 10^3/ul (0.0-0.0); REACTIVE LYMPHOCYTES% (M) 1 % (0-0); SEG NEUT #M 8.4 10^3/ul (1.6-7.5); SEGMENTED NEUTROPHILS (M) % 75 % (39-77); SMUDGE%M 3 % (0-0)
[2017-10-06] MEDS: HYDROCODONE/APAP (10/325) TAB PO ×2 (14:16→17:59)
[2017-10-06] MEDS: HEPARIN (100 UNITS/ML) 5 ML SYG CATHETER (17:33)
== END 2017-10-06 18:25 | disposition home health service (06) | DRG 408 ==
LOC: MS1 09-15 20:04
PROC: 0D798ZZ Dilation of Duodenum, Via Natural or Artificial Opening Endoscopic (ICD-10-PCS; 2017-09-13 16:30)
PROC: 3E04305 Introduction of Other Antineoplastic into Central Vein, Percutaneous Approach (ICD-10-PCS; principal; 2017-09-13 16:42)
PROC: 02HV33Z Insertion of Infusion Device into Superior Vena Cava, Percutaneous Approach (ICD-10-PCS; 2017-09-13 16:42)
PROC: 0JH63XZ Insertion of Tunneled Vascular Access Device into Chest Subcutaneous Tissue and Fascia, Percutaneous Approach (ICD-10-PCS; 2017-09-13 16:42)
PROC: 0F9730Z Drainage of Common Hepatic Duct with Drainage Device, Percutaneous Approach (ICD-10-PCS; 2017-09-13 16:42)
PROC: 0FPB3DZ Removal of Intraluminal Device from Hepatobiliary Duct, Percutaneous Approach (ICD-10-PCS; 2017-09-13 16:42)
PROC: 0FPB30Z Removal of Drainage Device from Hepatobiliary Duct, Percutaneous Approach (ICD-10-PCS; 2017-09-13 16:42)
PROC: 0F9930Z Drainage of Common Bile Duct with Drainage Device, Percutaneous Approach (ICD-10-PCS; 2017-09-13 16:42)
PROC: BF10YZZ Fluoroscopy of Bile Ducts using Other Contrast (ICD-10-PCS; 2017-09-13 16:42)
PROC: 0DB78ZX Excision of Stomach, Pylorus, Via Natural or Artificial Opening Endoscopic, Diagnostic (ICD-10-PCS; 2017-09-13 16:42)
PROC: 0D798ZZ Dilation of Duodenum, Via Natural or Artificial Opening Endoscopic (ICD-10-PCS; 2017-09-13 16:42)
PROC: 0F9930Z Drainage of Common Bile Duct with Drainage Device, Percutaneous Approach (ICD-10-PCS; 2017-09-13 16:42)
PROC: 0F9730Z Drainage of Common Hepatic Duct with Drainage Device, Percutaneous Approach (ICD-10-PCS; 2017-09-13 16:42)
PROC: 0D7 Gastrointestinal System, Dilation (ICD-10-PCS; 2017-09-13 16:42)
PROC: BF10YZZ Fluoroscopy of Bile Ducts using Other Contrast (ICD-10-PCS; 2017-09-13 16:42)
DX: C25.0 Malignant neoplasm of head of pancreas (principal); K83.1 Obstruction of bile duct; K31.5 Obstruction of duodenum; E44.0 Moderate protein-calorie malnutrition; K26.9 Duodenal ulcer, unspecified as acute or chronic, without hemorrhage or perforation; D50.9 Iron deficiency anemia, unspecified; Z68.1 Body mass index [BMI] 19.9 or less, adult; K86.89 Other specified diseases of pancreas; E87.6 Hypokalemia; D70.1 Agranulocytosis secondary to cancer chemotherapy; K59.00 Constipation, unspecified; R06.6 Hiccough; R63.4 Abnormal weight loss; R07.89 Other chest pain; F17.200 Nicotine dependence, unspecified, uncomplicated; F10.20 Alcohol dependence, uncomplicated; Z87.11 Personal history of peptic ulcer disease
CPT/HCPCS: 36561; 71045; 74018; 74183; 74240; 74330; 75982; 75984; 76942; 80048; 80053; 80061; 81003; 82378; 82728; 82962; 83036; 83540; 83690; 83735; 84100; 84443; 84484; 85025; 85610; 85730; 86140; 86301; 86304; 86703; 86704; 86706; 86708; 86709; 86803; 87081; 87340; 88104; 88305; 88312; 93005; 93306; 93970; 93971; 97164; J9201

== ENCOUNTER 2017-10-11 10:09 | Outpatient (CLI) | payer OTHER | END 2017-10-11 15:42 | disposition home or self-care (01) | LOC: HPC 10:09 | DX: R19.00 Intra-abdominal and pelvic swelling, mass and lump, unspecified site (principal); K83.1 Obstruction of bile duct; K86.89 Other specified diseases of pancreas; K25.9 Gastric ulcer, unspecified as acute or chronic, without hemorrhage or perforation; D50.9 Iron deficiency anemia, unspecified; K40.90 Unilateral inguinal hernia, without obstruction or gangrene, not specified as recurrent; Z72.0 Tobacco use | CPT/HCPCS: Z7500 ==

== ENCOUNTER → 2017-10-12 | Outpatient (CLI) | payer OTHER ==
[2017-10-12 13:30] LABS: ADD MAN DIFF? NO
[2017-10-12 13:34] LABS: BASOPHILS % 0.5 % (0.0-2.0); EOSINOPHILS # 0.1 10^3/ul (0.0-0.5); EOSINOPHILS % 1.6 % (0.0-7.0); HEMATOCRIT 35.4 % (42.0-52.0); LYMPHOCYTES # 0.7 10^3/ul (0.8-2.9); LYMPHOCYTES % 9.6 % (15.0-51.0); MEAN CORPUSCULAR HEMOGLOBIN 24.7 pg (29.0-33.0); MEAN CORPUSCULAR HGB CONC 31.1 g/dl (32.0-37.0); MEAN CORPUSCULAR VOLUME 79.6 fl (82.0-101.0); MEAN PLATELET VOLUME 8.4 fl (7.4-10.4); MONOCYTE # 0.8 10^3/ul (0.3-0.9); MONOCYTES % 10.1 % (0.0-11.0); NEUTROPHIL # 5.8 10^3/ul (1.6-7.5); NEUTROPHILS % 77.3 % (39.0-77.0); PLATELET COUNT 259 10^3/UL (140-415); RED BLOOD COUNT 4.45 10^6/ul (4.70-6.10); RED CELL DISTRIBUTION WIDTH 16.8 % (11.5-14.5)
[2017-10-12 13:34] LABS: WHITE BLOOD COUNT 7.5 10^3/ul (4.8-10.8)
[2017-10-12 13:47] LABS: INR 0.96; PROTIME 12.9 Sec (11.9-14.9)
[2017-10-12 13:51] LABS: ALANINE AMINOTRANSFERASE 47 IU/L (13-69); ALBUMIN 3.3 g/dl (3.3-4.9); ALKALINE PHOSPHATASE 549 IU/L (42-121); AMYLASE 120 U/L (11-123); ANION GAP 14 (8-16); ASPARTATE AMINO TRANSFERASE 39 IU/L (15-46); BILIRUBIN,INDIRECT 0.1 mg/dl (0-1.1); BILIRUBIN,TOTAL 0.1 mg/dl (0.2-1.3); BLOOD UREA NITROGEN 7 mg/dl (7-20); CARBON DIOXIDE 29 mmol/L (21-31); CHLORIDE 99 mmol/L (97-110); CREATININE 0.66 mg/dl (0.61-1.24); GLUCOSE 132 mg/dl (70-220); LIPASE 636 U/L (23-300); PHOSPHORUS 3.1 mg/dl (2.5-4.9); POTASSIUM 4.2 mmol/L (3.5-5.1); SODIUM 138 mmol/L (135-144); TOTAL PROTEIN 6.1 g/dl (6.1-8.1)
[2017-10-12 14:32] LABS: LACTIC ACID 2.3 mmol/L (0.5-2.0)
== END | disposition home or self-care (01) ==
LOC: RAD 08:00
DX: C25.0 Malignant neoplasm of head of pancreas (principal)
CPT/HCPCS: 36589; 58340; 80048; 80076; 82150; 83605; 83690; 83735; 84100; 85025; 85610

== ENCOUNTER 2018-02-15 11:02 | Inpatient (IN) | payer OTHER ==
[2018-02-15] MEDS: ONDANSETRON 4 MG INJ IV (11:47)
[2018-02-15] MEDS: SOD CHLORIDE 0.9% 1,000 ML IV ×3 (11:47→14:04)
[2018-02-15 12:16] LABS: ABNORMAL IP MESSAGE 1; HEMATOCRIT 27.6 % (42.0-52.0); HEMOGLOBIN 8.7 g/dl (14.0-18.0); MEAN CORPUSCULAR HEMOGLOBIN 29.6 pg (29.0-33.0); MEAN CORPUSCULAR HGB CONC 31.5 g/dl (32.0-37.0); MEAN CORPUSCULAR VOLUME 93.9 fl (82.0-101.0); MEAN PLATELET VOLUME 9.8 fl (7.4-10.4); PLATELET COUNT 137 10^3/UL (140-415); POSITIVE DIFF @See below; RED BLOOD COUNT 2.94 10^6/ul (4.70-6.10); RED CELL DISTRIBUTION WIDTH 17.7 % (11.5-14.5)
[2018-02-15 12:16] LABS: WHITE BLOOD COUNT 9.5 10^3/ul (4.8-10.8)
[2018-02-15 12:21] LABS: ADD MAN DIFF? YES
[2018-02-15 12:40] LABS: ALANINE AMINOTRANSFERASE 86 IU/L (13-69); ALBUMIN 2.6 g/dl (3.3-4.9); ALBUMIN/GLOBULIN RATIO 0.76; ALKALINE PHOSPHATASE 403 IU/L (42-121); ANION GAP 9 (8-16); ASPARTATE AMINO TRANSFERASE 122 IU/L (15-46); BILIRUBIN,INDIRECT 0.4 mg/dl (0-1.1); BILIRUBIN,TOTAL 0.4 mg/dl (0.2-1.3); BLOOD UREA NITROGEN 25 mg/dl (7-20); CALCIUM 8.4 mg/dl (8.4-10.2); CARBON DIOXIDE 28 mmol/L (21-31); CHLORIDE 105 mmol/L (97-110); CREATININE 0.68 mg/dl (0.61-1.24); GLUCOSE 119 mg/dl (70-220); LIPASE 39 U/L (23-300); POTASSIUM 4.2 mmol/L (3.5-5.1); SODIUM 138 mmol/L (135-144)
[2018-02-15 13:10] LABS: BAND NEUTROPHILS #M 0.7 10^3/ul (0.0-0.6); BAND NEUTROPHILS % (M) 8 % (0-4); BASOPHILS % (M) 2 % (0-2); LYMPHOCYTES #M 3.6 10^3/ul (0.8-2.9); LYMPHOCYTES % (M) 38 % (15-51); MONOCYTE #M 0.4 10^3/ul (0.3-0.9); MONOCYTES % (M) 5 % (0-11); REACTIVE LYMPHOCYTES #M 0.2 10^3/ul (0.0-0.0); REACTIVE LYMPHOCYTES% (M) 3 % (0-0); SEG NEUT #M 4.2 10^3/ul (1.6-7.5); SEGMENTED NEUTROPHILS (M) % 43 % (39-77)
[2018-02-15 13:11] LABS: ANISOCYTOSIS 2+ (0-0); BASOPHIL #M 0.1 10^3/ul (0.0-0.0); METAMYELOCYTES %M 1 % (0-0); MICROCYTOSIS 2+ (0-0); PLATELET ESTIMATE DECREASED; POLYCHROMASIA 1+ (0-0); SMUDGE%M 17 % (0-0)
[2018-02-15] MEDS ORDERED: NACL 0.9% 3 ML SYG IV (14:00)
[2018-02-15] MEDS ORDERED: ACETAMINOPHEN 325 MG TAB PO ×2 (14:00)
[2018-02-15] MEDS ORDERED: ONDANSETRON 4 MG INJ IV (14:00)
[2018-02-15] MEDS ORDERED: morphine 2 MG INJ IV (14:00)
[2018-02-15] MEDS: CEPASTAT LOZENGE MT (15:11)
[2018-02-15] MEDS: CHLORPROMAZINE 10 MG TAB PO (15:12)
[2018-02-15 16:29] LABS: ADD UMIC NO; UR ASCORBIC ACID 40 mg/dL (NEGATIVE); UR BILIRUBIN (Dip) NEGATIVE (NEGATIVE); UR BLOOD (Dip) NEGATIVE (NEGATIVE); UR CLARITY CLEAR (CLEAR); UR COLOR YELLOW (YELLOW); UR GLUCOSE (Dip) NEGATIVE (NEGATIVE); UR KETONES (Dip) NEGATIVE (NEGATIVE); UR LEUKOCYTE ESTERASE (Dip) NEGATIVE Leu/ul (NEGATIVE); UR NITRITE (Dip) NEGATIVE (NEGATIVE); UR SPECIFIC GRAVITY (Dip) 1.019 (1.003-1.030); UR TOTAL PROTEIN (Dip) NEGATIVE (NEGATIVE); UR UROBILINOGEN (Dip) NEGATIVE (NEGATIVE)
[2018-02-15] MEDS: HYDROCODONE/APAP (10/325) TAB PO (16:33)
[2018-02-15] MEDS: CEFAZOLIN 1 GM/50 ML (PMX) 50 ML IVPB ×2 (17:16→17:30)
[2018-02-15] MEDS: PANTOPRAZOLE (EC) 40 MG TAB PO (18:00)
[2018-02-15 18:16] LABS: IRON 33 ug/dl (35-150)
[2018-02-15] MEDS: PHENYLephrine (100 MCG/ML) 5ML SYG (18:20)
[2018-02-15] MEDS: PROPOFOL 20 ML (18:20)
[2018-02-15 18:25] LABS: % IRON SATURATION 14 % SAT (22-52); TOTAL IRON BINDING CAPACITY 232 ug/dl (241-421)
[2018-02-15] MEDS ORDERED: ALBUMIN HUMAN 5% 500 ML (18:59)
[2018-02-15] MEDS: ALBUMIN HUMAN 5% 250 ML IV ×2 (19:37→20:00)
[2018-02-15] MEDS ORDERED: LEVOFLOXACIN 750MG/D5W (PMX) 150 ML IVPB (20:00)
[2018-02-15] MEDS ORDERED: CEPASTAT LOZENGE MT (21:30)
[2018-02-16] MEDS: SOD CHLORIDE 0.9% 1,000 ML IV (00:10)
[2018-02-16] MEDS: DEXTROSE 5%-0.45% NACL 1,000 ML IV ×2 (00:34→05:29)
[2018-02-16] MEDS: CEFAZOLIN 1 GM/50 ML (PMX) 50 ML IVPB (00:34)
[2018-02-16] MEDS: SOD FERRIC GLUC COMPLX 125 MG in SOD CHLORIDE 0.9% 100 ML IVPB ×2 (01:21→17:08)
[2018-02-16] MEDS ORDERED: PENDING SANTYL ORDER FOR WOUND CARE XX (03:00)
[2018-02-16] MEDS: LEVOFLOXACIN 750MG/D5W (PMX) 150 ML IVPB ×2 (03:01→22:37)
[2018-02-16] MEDS: PANTOPRAZOLE (EC) 40 MG TAB PO ×2 (05:30→17:34)
[2018-02-16 08:43] LABS: ABNORMAL IP MESSAGE 1; HEMATOCRIT 24.3 % (42.0-52.0); HEMOGLOBIN 7.7 g/dl (14.0-18.0); MEAN CORPUSCULAR HEMOGLOBIN 29.3 pg (29.0-33.0); MEAN CORPUSCULAR HGB CONC 31.7 g/dl (32.0-37.0); MEAN CORPUSCULAR VOLUME 92.4 fl (82.0-101.0); MEAN PLATELET VOLUME 9.6 fl (7.4-10.4); PLATELET COUNT 125 10^3/UL (140-415); POSITIVE DIFF @See below; RED BLOOD COUNT 2.63 10^6/ul (4.70-6.10); RED CELL DISTRIBUTION WIDTH 17.6 % (11.5-14.5)
[2018-02-16 08:43] LABS: WHITE BLOOD COUNT 7.8 10^3/ul (4.8-10.8)
[2018-02-16 08:46] LABS: ADD MAN DIFF? YES
[2018-02-16 09:04] LABS: ALANINE AMINOTRANSFERASE 60 IU/L (13-69); ALBUMIN 2.2 g/dl (3.3-4.9); ALBUMIN/GLOBULIN RATIO 0.78; ALKALINE PHOSPHATASE 300 IU/L (42-121); ANION GAP 13 (8-16); ASPARTATE AMINO TRANSFERASE 72 IU/L (15-46); BILIRUBIN,INDIRECT 0.3 mg/dl (0-1.1); BILIRUBIN,TOTAL 0.3 mg/dl (0.2-1.3); BLOOD UREA NITROGEN 15 mg/dl (7-20); CALCIUM 7.5 mg/dl (8.4-10.2); CARBON DIOXIDE 25 mmol/L (21-31); CHLORIDE 102 mmol/L (97-110); CREATININE 0.56 mg/dl (0.61-1.24); GLUCOSE 85 mg/dl (70-220); MAGNESIUM 1.9 mg/dl (1.7-2.5); POTASSIUM 3.6 mmol/L (3.5-5.1); SODIUM 136 mmol/L (135-144)
[2018-02-16 09:53] LABS: ANISOCYTOSIS 1+ (0-0); BAND NEUTROPHILS % (M) 14 % (0-4); BURR CELLS 1+ (0-0); LYMPHOCYTES #M 2.8 10^3/ul (0.8-2.9); LYMPHOCYTES % (M) 36 % (15-51); METAMYELOCYTES #M 0.1 10^3/ul (0.0-0.0); METAMYELOCYTES %M 2 % (0-0); MICROCYTOSIS 1+ (0-0); MONOCYTE #M 0.9 10^3/ul (0.3-0.9); MONOCYTES % (M) 12 % (0-11); PLATELET ESTIMATE DECREASED; POIKILOCYTOSIS 1+ (0-0); POLYCHROMASIA 1+ (0-0); SEG NEUT #M 2.9 10^3/ul (1.6-7.5); SEGMENTED NEUTROPHILS (M) % 36 % (39-77); SMUDGE%M 13 % (0-0)
[2018-02-16] MEDS ORDERED: TPN 1,000 ML IV (15:30)
[2018-02-16 15:45] LABS: TRIGLYCERIDES 127 mg/dl (0-149)
[2018-02-16 15:52] LABS: PREALBUMIN 6.9 mg/dl (17.6-36.0)
[2018-02-16] MEDS: HYDROCODONE/APAP (10/325) TAB PO (17:34)
[2018-02-16] MEDS: ACCU-CHEK XX ×2 (17:45→21:24)
[2018-02-17] MEDS: ACCU-CHEK XX ×6 (01:43→21:00)
[2018-02-17] MEDS: PANTOPRAZOLE (EC) 40 MG TAB PO ×2 (05:14→17:45)
[2018-02-17 06:11] LABS: ADD MAN DIFF? NO
[2018-02-17 06:14] LABS: WHITE BLOOD COUNT 8.5 10^3/ul (4.8-10.8)
[2018-02-17 06:14] LABS: ABNORMAL IP MESSAGE 1; HEMATOCRIT 25.3 % (42.0-52.0); HEMOGLOBIN 8.2 g/dl (14.0-18.0); MEAN CORPUSCULAR HEMOGLOBIN 29.7 pg (29.0-33.0); MEAN CORPUSCULAR HGB CONC 32.4 g/dl (32.0-37.0); MEAN CORPUSCULAR VOLUME 91.7 fl (82.0-101.0); MEAN PLATELET VOLUME 9.8 fl (7.4-10.4); PLATELET COUNT 124 10^3/UL (140-415); POSITIVE DIFF @See below; RED BLOOD COUNT 2.76 10^6/ul (4.70-6.10); RED CELL DISTRIBUTION WIDTH 17.7 % (11.5-14.5)
[2018-02-17 06:56] LABS: ALANINE AMINOTRANSFERASE 57 IU/L (13-69); ALBUMIN 2.2 g/dl (3.3-4.9); ALBUMIN/GLOBULIN RATIO 0.73; ALKALINE PHOSPHATASE 310 IU/L (42-121); ANION GAP 12 (8-16); ASPARTATE AMINO TRANSFERASE 73 IU/L (15-46); BILIRUBIN,INDIRECT 0.4 mg/dl (0-1.1); BILIRUBIN,TOTAL 0.4 mg/dl (0.2-1.3); BLOOD UREA NITROGEN 15 mg/dl (7-20); CARBON DIOXIDE 27 mmol/L (21-31); CHLORIDE 101 mmol/L (97-110); CHOL/HDL RATIO 4.4 RATIO; CHOLESTEROL 66 mg/dl (100-200); CREATININE 0.59 mg/dl (0.61-1.24); GLUCOSE 76 mg/dl (70-220); HDL CHOLESTEROL 15 mg/dl (30-78); LDL CHOLESTEROL,CALCULATED 22 mg/dl; MAGNESIUM 2.1 mg/dl (1.7-2.5); POTASSIUM 4.7 mmol/L (3.5-5.1); SODIUM 135 mmol/L (135-144); TOTAL PROTEIN 5.2 g/dl (6.1-8.1); TRIGLYCERIDES 143 mg/dl (0-149)
[2018-02-17 08:59] LABS: ANISOCYTOSIS 2+ (0-0); BAND NEUTROPHILS #M 1.1 10^3/ul (0.0-0.6); BAND NEUTROPHILS % (M) 14 % (0-4); GIANT THROMBO% (M) 1 % (0-0); LYMPHOCYTES #M 1.3 10^3/ul (0.8-2.9); LYMPHOCYTES % (M) 16 % (15-51); MICROCYTOSIS 2+ (0-0); MONOCYTE #M 1.1 10^3/ul (0.3-0.9); MONOCYTES % (M) 13 % (0-11); PLATELET ESTIMATE DECREASED; POLYCHROMASIA 3+ (0-0); REACTIVE LYMPHOCYTES #M 0.6 10^3/ul (0.0-0.0); REACTIVE LYMPHOCYTES% (M) 8 % (0-0); SEG NEUT #M 4.3 10^3/ul (1.6-7.5); SEGMENTED NEUTROPHILS (M) % 49 % (39-77); SMUDGE%M 24 % (0-0)
[2018-02-17] MEDS: TPN 1,000 ML IV (15:13)
[2018-02-17] MEDS: SOD FERRIC GLUC COMPLX 125 MG in SOD CHLORIDE 0.9% 100 ML IVPB (17:45)
[2018-02-17] MEDS: LEVOFLOXACIN 750MG/D5W (PMX) 150 ML IVPB (22:35)
[2018-02-18] MEDS: ACCU-CHEK XX ×4 (01:46→17:10)
[2018-02-18] MEDS: HYDROCODONE/APAP (10/325) TAB PO ×3 (05:00→22:59)
[2018-02-18] MEDS: PANTOPRAZOLE (EC) 40 MG TAB PO ×2 (05:00→17:02)
[2018-02-18 06:20] LABS: HEMATOCRIT 23.1 % (42.0-52.0); HEMOGLOBIN 7.6 g/dl (14.0-18.0); MEAN CORPUSCULAR HEMOGLOBIN 29.7 pg (29.0-33.0); MEAN CORPUSCULAR HGB CONC 32.9 g/dl (32.0-37.0); MEAN CORPUSCULAR VOLUME 90.2 fl (82.0-101.0); MEAN PLATELET VOLUME 9.9 fl (7.4-10.4); PLATELET COUNT 116 10^3/UL (140-415); POSITIVE DIFF @See below; RED BLOOD COUNT 2.56 10^6/ul (4.70-6.10); RED CELL DISTRIBUTION WIDTH 17.4 % (11.5-14.5)
[2018-02-18 06:54] LABS: PHOSPHORUS 3.3 mg/dl (2.5-4.9)
[2018-02-18 06:56] LABS: ADD MAN DIFF? YES
[2018-02-18 06:59] LABS: ALANINE AMINOTRANSFERASE 53 IU/L (13-69); ALBUMIN 2.1 g/dl (3.3-4.9); ALBUMIN/GLOBULIN RATIO 0.67; ALKALINE PHOSPHATASE 314 IU/L (42-121); ANION GAP 10 (8-16); ASPARTATE AMINO TRANSFERASE 60 IU/L (15-46); BILIRUBIN,INDIRECT 0.4 mg/dl (0-1.1); BILIRUBIN,TOTAL 0.4 mg/dl (0.2-1.3); BLOOD UREA NITROGEN 15 mg/dl (7-20); CALCIUM 7.7 mg/dl (8.4-10.2); CARBON DIOXIDE 24 mmol/L (21-31); CHLORIDE 104 mmol/L (97-110); CREATININE 0.53 mg/dl (0.61-1.24); GLUCOSE 104 mg/dl (70-220); POTASSIUM 3.6 mmol/L (3.5-5.1); SODIUM 134 mmol/L (135-144); TOTAL PROTEIN 5.2 g/dl (6.1-8.1)
[2018-02-18 08:52] LABS: ANISOCYTOSIS 2+ (0-0); BAND NEUTROPHILS % (M) 1 % (0-4); BASOPHILS % (M) 1 % (0-2); BURR CELLS 1+ (0-0); LYMPHOCYTES % (M) 17 % (15-51); MONOCYTE #M 0.4 10^3/ul (0.3-0.9); MONOCYTES % (M) 7 % (0-11); OVALOCYTES 1+ (0-0); PLASMA CELLS #M 0.1 10^3/ul (0.0-0.0); PLASMAC%(M) 3 % (0); PLATELET ESTIMATE DECREASED; POIKILOCYTOSIS 1+ (0-0); POLYCHROMASIA 2+ (0-0); SEG NEUT #M 4.2 10^3/ul (1.6-7.5); SEGMENTED NEUTROPHILS (M) % 70 % (39-77); SMUDGE%M 10 % (0-0)
[2018-02-18] MEDS ORDERED: CEPASTAT LOZENGE MT (14:00)
[2018-02-18] MEDS: SOD FERRIC GLUC COMPLX 125 MG in SOD CHLORIDE 0.9% 100 ML IVPB (16:15)
[2018-02-18] MEDS: TPN 1,000 ML IV (16:15)
[2018-02-18] MEDS: DOCUSATE SODIUM 100 MG CAP PO (17:03)
[2018-02-18] MEDS: LEVOFLOXACIN 750MG/D5W (PMX) 150 ML IVPB (22:47)
[2018-02-19] MEDS: ACCU-CHEK XX ×4 (00:47→18:14)
[2018-02-19] MEDS: PANTOPRAZOLE (EC) 40 MG TAB PO ×2 (05:13→17:42)
[2018-02-19 07:51] LABS: HEMATOCRIT 27.8 % (42.0-52.0); HEMOGLOBIN 8.9 g/dl (14.0-18.0); MEAN CORPUSCULAR HEMOGLOBIN 29.7 pg (29.0-33.0); MEAN CORPUSCULAR VOLUME 92.7 fl (82.0-101.0); MEAN PLATELET VOLUME 9.7 fl (7.4-10.4); PLATELET COUNT 134 10^3/UL (140-415); POSITIVE DIFF @See below; RED CELL DISTRIBUTION WIDTH 17.8 % (11.5-14.5)
[2018-02-19 07:51] LABS: WHITE BLOOD COUNT 5.8 10^3/ul (4.8-10.8)
[2018-02-19 07:53] LABS: ADD MAN DIFF? YES
[2018-02-19 08:11] LABS: PROTIME 14.4 Sec (11.9-14.9); PT RATIO 1.1
[2018-02-19 08:30] LABS: ALANINE AMINOTRANSFERASE 50 IU/L (13-69); ALBUMIN 2.3 g/dl (3.3-4.9); ALBUMIN/GLOBULIN RATIO 0.74; ALKALINE PHOSPHATASE 363 IU/L (42-121); ANION GAP 9 (8-16); ASPARTATE AMINO TRANSFERASE 61 IU/L (15-46); BILIRUBIN,INDIRECT 0.4 mg/dl (0-1.1); BILIRUBIN,TOTAL 0.4 mg/dl (0.2-1.3); BLOOD UREA NITROGEN 15 mg/dl (7-20); CARBON DIOXIDE 28 mmol/L (21-31); CHLORIDE 100 mmol/L (97-110); CREATININE 0.56 mg/dl (0.61-1.24); GLUCOSE 99 mg/dl (70-220); MAGNESIUM 2.1 mg/dl (1.7-2.5); POTASSIUM 4.1 mmol/L (3.5-5.1); SODIUM 133 mmol/L (135-144); TOTAL PROTEIN 5.4 g/dl (6.1-8.1)
[2018-02-19 08:32] LABS: PHOSPHORUS 3.2 mg/dl (2.5-4.9)
[2018-02-19 09:03] LABS: ANISOCYTOSIS 2+ (0-0); BAND NEUTROPHILS #M 0.6 10^3/ul (0.0-0.6); BAND NEUTROPHILS % (M) 11 % (0-4); LYMPHOCYTES #M 0.8 10^3/ul (0.8-2.9); LYMPHOCYTES % (M) 15 % (15-51); MICROCYTOSIS 2+ (0-0); MONOCYTE #M 0.6 10^3/ul (0.3-0.9); MONOCYTES % (M) 11 % (0-11); PLATELET ESTIMATE DECREASED; POIKILOCYTOSIS 1+ (0-0); POLYCHROMASIA 3+ (0-0); REACTIVE LYMPHOCYTES #M 0.2 10^3/ul (0.0-0.0); REACTIVE LYMPHOCYTES% (M) 4 % (0-0); SEG NEUT #M 3.5 10^3/ul (1.6-7.5); SEGMENTED NEUTROPHILS (M) % 59 % (39-77); SMUDGE%M 6 % (0-0)
[2018-02-19] MEDS: HYDROCODONE/APAP (10/325) TAB PO (10:55)
[2018-02-19] MEDS: TPN 1,000 ML IV ×2 (15:00→22:05)
[2018-02-19] MEDS: SOD FERRIC GLUC COMPLX 125 MG in SOD CHLORIDE 0.9% 100 ML IVPB (16:52)
[2018-02-19] MEDS ORDERED: PROPOFOL 20 ML (19:54)
[2018-02-19] MEDS ORDERED: MIDAZOLAM 1 MG/ML 2 ML INJ (19:56)
[2018-02-19] MEDS ORDERED: FENTAnyl 50 MCG/ML VIAL ×2 (19:56→21:04)
[2018-02-19] MEDS: ONDANSETRON 4 MG INJ IV (21:18)
[2018-02-19] MEDS: FENTAnyl 50 MCG/ML VIAL IV (21:19)
[2018-02-19] MEDS ORDERED: FENTAnyl 50 MCG/ML VIAL IV (21:30)
[2018-02-20] MEDS: LEVOFLOXACIN 750MG/D5W (PMX) 150 ML IVPB (00:18)
[2018-02-20] MEDS: METOCLOPRAMIDE 10 MG INJ IV (01:47)
[2018-02-20] MEDS: PANTOPRAZOLE (EC) 40 MG TAB PO ×2 (05:28→17:24)
[2018-02-20] MEDS: ACCU-CHEK XX ×4 (05:31→17:24)
[2018-02-20 07:34] LABS: ANION GAP 10 (8-16); BLOOD UREA NITROGEN 16 mg/dl (7-20); CALCIUM 7.8 mg/dl (8.4-10.2); CARBON DIOXIDE 26 mmol/L (21-31); CHLORIDE 99 mmol/L (97-110); CREATININE 0.58 mg/dl (0.61-1.24); GLUCOSE 108 mg/dl (70-220); PHOSPHORUS 3.4 mg/dl (2.5-4.9); POTASSIUM 4.3 mmol/L (3.5-5.1); SODIUM 131 mmol/L (135-144)
[2018-02-20] MEDS: ONDANSETRON 4 MG INJ IV (12:37)
[2018-02-20] MEDS: HYDROCODONE/APAP (10/325) TAB PO (12:38)
[2018-02-20] MEDS: TPN 1,000 ML IV (15:00)
[2018-02-21] MEDS: ONDANSETRON 4 MG INJ IV (00:05)
[2018-02-21] MEDS: HYDROCODONE/APAP (10/325) TAB PO ×2 (00:48→14:12)
[2018-02-21] MEDS: TPN 1,000 ML IV ×3 (01:32→23:11)
[2018-02-21 05:29] LABS: ANION GAP 12 (8-16); BLOOD UREA NITROGEN 15 mg/dl (7-20); CALCIUM 8.1 mg/dl (8.4-10.2); CARBON DIOXIDE 28 mmol/L (21-31); CHLORIDE 100 mmol/L (97-110); CREATININE 0.59 mg/dl (0.61-1.24); GLUCOSE 100 mg/dl (70-220); MAGNESIUM 2.2 mg/dl (1.7-2.5); PHOSPHORUS 3.3 mg/dl (2.5-4.9); POTASSIUM 4.1 mmol/L (3.5-5.1); SODIUM 136 mmol/L (135-144)
[2018-02-21] MEDS: ACCU-CHEK XX ×4 (06:00→18:07)
[2018-02-21] MEDS: PANTOPRAZOLE (EC) 40 MG TAB PO ×2 (06:29→18:06)
[2018-02-21] MEDS ORDERED: FAT EMULSION 20% 250 ML IV (18:00)
[2018-02-21] MEDS: FAT EMULSION 20% 250 ML IV (20:56)
[2018-02-22] MEDS: MAGNESIUM HYDROXIDE 30ML CUP PO (04:26)
[2018-02-22] MEDS: HYDROCODONE/APAP (10/325) TAB PO ×3 (05:03→20:48)
[2018-02-22] MEDS: PANTOPRAZOLE (EC) 40 MG TAB PO ×2 (05:03→17:15)
[2018-02-22 05:53] LABS: ADD MAN DIFF? NO
[2018-02-22 06:00] LABS: WHITE BLOOD COUNT 5.4 10^3/ul (4.8-10.8)
[2018-02-22 06:00] LABS: BASOPHILS % 0.6 % (0.0-2.0); EOSINOPHILS % 0.2 % (0.0-7.0); HEMATOCRIT 30.1 % (42.0-52.0); HEMOGLOBIN 9.7 g/dl (14.0-18.0); LYMPHOCYTES # 2.2 10^3/ul (0.8-2.9); LYMPHOCYTES % 41.1 % (15.0-51.0); MEAN CORPUSCULAR HEMOGLOBIN 30.3 pg (29.0-33.0); MEAN CORPUSCULAR HGB CONC 32.2 g/dl (32.0-37.0); MEAN CORPUSCULAR VOLUME 94.1 fl (82.0-101.0); MEAN PLATELET VOLUME 9.5 fl (7.4-10.4); MONOCYTE # 0.5 10^3/ul (0.3-0.9); MONOCYTES % 8.4 % (0.0-11.0); NEUTROPHIL # 2.7 10^3/ul (1.6-7.5); NEUTROPHILS % 49.3 % (39.0-77.0); PLATELET COUNT 155 10^3/UL (140-415); POSITIVE DIFF @See below; RED CELL DISTRIBUTION WIDTH 18.3 % (11.5-14.5)
[2018-02-22] MEDS: ACCU-CHEK XX ×4 (06:00→17:48)
[2018-02-22 06:18] LABS: ANION GAP 13 (8-16); BLOOD UREA NITROGEN 17 mg/dl (7-20); CALCIUM 8.7 mg/dl (8.4-10.2); CARBON DIOXIDE 29 mmol/L (21-31); CHLORIDE 97 mmol/L (97-110); CREATININE 0.58 mg/dl (0.61-1.24); GLUCOSE 119 mg/dl (70-220); MAGNESIUM 2.2 mg/dl (1.7-2.5); PHOSPHORUS 3.2 mg/dl (2.5-4.9); POTASSIUM 4.6 mmol/L (3.5-5.1); SODIUM 134 mmol/L (135-144)
[2018-02-22] MEDS: TPN 1,000 ML IV (11:42)
[2018-02-22] MEDS ORDERED: MEPERIDINE 50 MG INJ IV (17:30)
[2018-02-22] MEDS ORDERED: METHYLPREDNISOLONE 125 MG INJ IV (17:30)
[2018-02-22] MEDS ORDERED: DIPHENHYDRAMINE 50 MG INJ IV (17:30)
[2018-02-22 18:10] LABS: INR 0.99; PROTIME 13.2 Sec (11.9-14.9)
[2018-02-22] MEDS: DIPHENHYDRAMINE 50 MG INJ IV (20:05)
[2018-02-22] MEDS: DOCUSATE SODIUM 100 MG CAP PO (20:06)
[2018-02-22] MEDS: GABAPENTIN 300 MG CAP PO (20:06)
[2018-02-22] MEDS: ONDANSETRON INJ 16 MG, DEXAMETHASONE 10 MG/ML 10 MG in SOD CHLORIDE 0.9% 50 ML IVPB (20:24)
[2018-02-22] MEDS: SOD CHLORIDE 0.9% 1,000 ML IV (20:48)
[2018-02-22] MEDS: GEMCITABINE IV (21:06)
[2018-02-22] MEDS: SOD CHLORIDE 0.9% IV (21:06)
[2018-02-22] MEDS ORDERED: SOD CHLORIDE 0.9% IV (22:00)
[2018-02-22] MEDS ORDERED: GEMCITABINE IV (22:00)
[2018-02-23] MEDS: TPN 1,000 ML IV (00:30)
[2018-02-23] MEDS: ACCU-CHEK XX ×5 (00:30→23:38)
[2018-02-23] MEDS: SOD CHLORIDE 0.9% 1,000 ML IV ×3 (01:00→21:00)
[2018-02-23] MEDS: PANTOPRAZOLE (EC) 40 MG TAB PO ×2 (05:27→17:59)
[2018-02-23 05:35] LABS: ALANINE AMINOTRANSFERASE 51 IU/L (13-69); ALBUMIN 2.1 g/dl (3.3-4.9); ALKALINE PHOSPHATASE 272 IU/L (42-121); ASPARTATE AMINO TRANSFERASE 45 IU/L (15-46); BILIRUBIN,INDIRECT 0.3 mg/dl (0-1.1); BILIRUBIN,TOTAL 0.3 mg/dl (0.2-1.3); TOTAL PROTEIN 5.4 g/dl (6.1-8.1)
[2018-02-23 05:42] LABS: INR 1.05; PROTIME 13.8 Sec (11.9-14.9); PT RATIO 1.1
[2018-02-23 05:48] LABS: PREALBUMIN 10.5 mg/dl (17.6-36.0)
[2018-02-23 06:04] LABS: ANION GAP 7 (8-16); BLOOD UREA NITROGEN 22 mg/dl (7-20); CALCIUM 7.9 mg/dl (8.4-10.2); CARBON DIOXIDE 25 mmol/L (21-31); CHLORIDE 108 mmol/L (97-110); GLUCOSE 140 mg/dl (70-220); MAGNESIUM 2.3 mg/dl (1.7-2.5); PHOSPHORUS 4.5 mg/dl (2.5-4.9); POTASSIUM 5.1 mmol/L (3.5-5.1); SODIUM 135 mmol/L (135-144)
[2018-02-23 08:03] LABS: TRIGLYCERIDES 57 mg/dl (0-149)
[2018-02-23] MEDS: MEGESTROL (40 MG/ML) 10ML CUP PO (11:12)
[2018-02-23] MEDS: GABAPENTIN 300 MG CAP PO ×2 (11:12→21:04)
[2018-02-23] MEDS ORDERED: MEGESTROL 40 MG TAB PO (13:00)
[2018-02-23] MEDS: HYDROCODONE/APAP (10/325) TAB PO (17:04)
[2018-02-24] MEDS: PANTOPRAZOLE (EC) 40 MG TAB PO (05:50)
[2018-02-24] MEDS: ACCU-CHEK XX (05:50)
[2018-02-24] MEDS: SOD CHLORIDE 0.9% 1,000 ML IV (05:50)
[2018-02-24] MEDS: GABAPENTIN 300 MG CAP PO (08:50)
[2018-02-24] MEDS: MEGESTROL (40 MG/ML) 10ML CUP PO (08:50)
[2018-02-24] MEDS: HEPARIN (100 UNITS/ML) 5 ML SYG CATHETER (09:56)
== END 2018-02-24 11:00 | disposition home health service (06) | DRG 380 ==
LOC: MS1 02-21 01:18 → E/R 11:02 → MS1 02-20 23:22 → MS4 17:00
PROC: 0DJ08ZZ Inspection of Upper Intestinal Tract, Via Natural or Artificial Opening Endoscopic (ICD-10-PCS; principal; 2018-02-15 16:59)
PROC: 0D798DZ Dilation of Duodenum with Intraluminal Device, Via Natural or Artificial Opening Endoscopic (ICD-10-PCS; 2018-02-15 16:59)
DX: K31.5 Obstruction of duodenum (principal); E43 Unspecified severe protein-calorie malnutrition; C25.9 Malignant neoplasm of pancreas, unspecified; Z68.1 Body mass index [BMI] 19.9 or less, adult; D64.9 Anemia, unspecified; R11.2 Nausea with vomiting, unspecified; E86.0 Dehydration
CPT/HCPCS: 71045; 74330; 80048; 80053; 80061; 80076; 81003; 82962; 83540; 83690; 83735; 84100; 84134; 84478; 85025; 85610; 87040; 96374; 97110; 97116; 97162; 97165; 97530; 99285-25; J9201